=== PATIENT | male | born 1950 | race African-American/Black ===

== ENCOUNTER 2017-01-21 08:57 | Emergency (ER) | payer OTHER ==
[~2017-01-21] VITALS: Ht 188 cm; Wt 104.3 kg
--- NOTE | 2017-01-21 10:20 | Emergency Room Report ---
History of Present Illness General Chief Complaint: Back Pain-No Injury Source: Patient, EMS Present Illness HPI 66 yo M unknown pmhx brought by ems after being [place] wandering [place] patient states he fell onto his hand, noted to have slight abrasion, but denies any pain states he has chronic back pain states he lives at a facility and would like to go home denies any other complaints Allergies: Coded Allergies: No Known Allergies (Unverified , 01/21/17) Patient History Limited by: medical condition Past Medical History: unable to obtain Past Surgical History: unable to obtain Pertinent Family History: unable to obtain Nursing Documentation-[facility] Past Medical History: No History, Except For Hx Cardiac Problems: Yes Hx Hypertension: Yes Hx Diabetes: Yes History Of Psychiatric Problem: Yes Review of Systems All Other Systems: negative except mentioned in HPI Physical Exam Vital Signs Date Time Temp Pulse Resp B/P Pulse Ox O2 Delivery O2 Flow Rate FiO2 01/21/17 08:55 98.4 80 16 142/84 99 Room Air General Appearance: normal inspection, no apparent distress, alert, GCS 15, non -toxic, other - disheveled appearing male, ambulatory, not in pain Head: normocephalic, atraumatic Eyes: bilateral eye EOMI, bilateral eye PERRL, bilateral eye normal inspection ENT: normal ENT inspection, normal pharynx, normal voice, moist mucus membranes Neck: normal inspection, full range of motion, supple, no bony tend Respiratory: normal inspection, lungs clear, normal breath sounds, no respiratory distress, no retraction, no wheezing, speaking full sentences, chest symmetrical Cardiovascular #1: normal inspection, regular rate, rhythm, no edema, normal capillary refill Gastrointestinal: normal inspection, non tender, soft, non-distended, no guarding Genitourinary: no CVA tenderness Musculoskeletal: normal inspection, back normal, normal range of motion, non- tender, other - abrasion noted to R hand, not infected, no gross bony deformities Neurologic: normal inspection, alert, responsive, tool grinder III-XII nml as tested, motor strength/tone normal, sensory intact, normal gait, speech normal, other - aox1-2 Medical Decision Making Diagnostic Impression: Primary Impression: Chronic back pain Additional Impression: Homelessness ER Course 66 yo M with pmhx of back pain b/b ems, complaining of his normal chronic back pain, wants to go home. DDX: likely musculoskeletal back pain vs. muscular strain vs. sciatica at this time pt does not appear altered is carrying normal conversation, cannot state his exact address on where he lives but states he lives in a facility. denying any pain. Serious diagnoses such as cord compression, epidural abscess is unlikely in this patient given the clinical scenario and abscess of neurological symptoms or findings. Patient appears nontoxic. Plan: tylenol/pain control ER course: Patient has remained nontoxic appearing and ambulatory in the ED. pt saying he wants to go home social workers consulted - found where he lives, will be xferred to that facility labs drawn - unremarkable except mild elevation lfts. no abd pain abd nontender Disposition: Patient will be discharged to home EKG Diagnostic Results Rate: normal Rhythm: NSR ASA given to the pt in ED: No Last Vital Signs Date Time Temp Pulse Resp B/P Pulse Ox O2 Delivery O2 Flow Rate FiO2 01/21/17 08:55 98.4 80 16 142/84 99 Room Air Michael Hernandez M.D. Jan 21, 2017 10:20
[2017-01-21 13:26] VITALS: BP 146/93
[2017-01-21 14:15] LABS: BASOPHILS % (AUTO) 1.1 % (0.0-2.0); EOSINOPHILS % (AUTO) 0.1 % (0.0-3.0); LYMPHOCYTES % (AUTO) 39.5 % (20.0-45.0); MEAN CORPUSCULAR HEMOGLOBIN 32.3 PG (27.0-31.0); MEAN CORPUSCULAR HGB CONC 31.6 G/DL (32.0-36.0); MEAN CORPUSCULAR VOLUME 103 FL (80-99); MEAN PLATELET VOLUME 7.6 FL (6.5-10.1); MONOCYTES % (AUTO) 11.1 % (1.0-10.0); NEUTROPHILS % (AUTO) 48.3 % (45.0-75.0); PLATELET COUNT 180 K/UL (150-450); RED BLOOD COUNT 4.55 M/UL (4.70-6.10); RED CELL DISTRIBUTION WIDTH 12.5 % (11.6-14.8); WHITE BLOOD COUNT 9.9 K/UL (4.8-10.8)
[2017-01-21 14:16] LABS: ALANINE AMINOTRANSFERASE 143 U/L (3-41); ALBUMIN/GLOBULIN RATIO 1.1 (1.0-2.7); ANION GAP 16 (5-15); ASPARTATE AMINO TRANSFERASE 230 U/L (5-40); CALCIUM 11.6 mg/dL (8.6-10.2); CARBON DIOXIDE 23 mEQ/L (20-30); CHLORIDE 101 mEQ/L (98-107); GLOMERULAR FILTRATION RATE > 60 mL/min (>60); HEMOLYSIS 6; POTASSIUM 3.8 mEQ/L (3.4-4.9); SODIUM 140 mEQ/L (135-145); TOTAL PROTEIN 7.6 g/dL (6.6-8.7)
[2017-01-21 16:00] VITALS: BP 140/89
[2017-01-21 18:00] VITALS: BP 143/91
[2017-01-21 20:00] VITALS: BP_SYST 135; BP_SYST 146; BP_DIAS 85; BP_DIAS 91
[2017-01-21 22:45] VITALS: BP 138/89
[2017-01-21 23:04] VITALS: BP 135/85
--- NOTE | 2017-01-23 00:52 | Cardiology Report ---
APPROVED REPORT EKG Measurement Heart [id number] MD 200P39 [id number] Normal sinus rhythm Left axis deviation Voltage criteria for left ventricular hypertrophy Prolonged QT Abnormal ECG
== END 2017-01-21 23:07 | disposition home or self-care (01) ==
LOC: EDBD 08:57 → EMR 09:28
DX: M54.9 Dorsalgia, unspecified (principal); G89.29 Other chronic pain; Z59.0 Homelessness; I10 Essential (primary) hypertension; E11.9 Type 2 diabetes mellitus without complications; S60.519A Abrasion of unspecified hand, initial encounter; W19.XXXA Unspecified fall, initial encounter; Y93.9 Activity, unspecified; Y92.9 Unspecified place or not applicable
CPT/HCPCS: 36415; 80053; 85025; 93005; 99284

== ENCOUNTER 2017-04-24 10:09 | Emergency (ER) | payer MEDICARE, OTHER ==
[~2017-04-24] VITALS: Ht 188 cm; Wt 95.3 kg
[2017-04-24 10:48] VITALS: BP 122/81
[2017-04-24 12:20] LABS: ANION GAP 5 mmol/L (5-15); CALCIUM 9.9 MG/DL (8.5-10.1); CARBON DIOXIDE 31 MMOL/L (21-32); CHLORIDE 102 MMOL/L (98-107); GLOMERULAR FILTRATION RATE > 60 mL/min (>60); POTASSIUM 4.5 MMOL/L (3.5-5.1); SODIUM 138 MMOL/L (136-145)
[2017-04-24 12:24] LABS: ALANINE AMINOTRANSFERASE 171 U/L (12-78); ALBUMIN/GLOBULIN RATIO 0.7 (1.0-2.7); ASPARTATE AMINO TRANSFERASE 140 U/L (15-37); LIPASE 168 U/L (73-393); TOTAL PROTEIN 8.1 G/DL (6.4-8.2)
[2017-04-24 12:35] LABS: BASOPHILS % (AUTO) 1.4 % (0.0-2.0); EOSINOPHILS % (AUTO) 3.7 % (0.0-3.0); LYMPHOCYTES % (AUTO) 39.5 % (20.0-45.0); MEAN CORPUSCULAR HEMOGLOBIN 33.5 PG (27.0-31.0); MEAN CORPUSCULAR HGB CONC 32.1 G/DL (32.0-36.0); MEAN CORPUSCULAR VOLUME 104 FL (80-99); MEAN PLATELET VOLUME 8.6 FL (6.5-10.1); MONOCYTES % (AUTO) 12.8 % (1.0-10.0); NEUTROPHILS % (AUTO) 42.8 % (45.0-75.0); PLATELET COUNT 197 K/UL (150-450); RED BLOOD COUNT 4.35 M/UL (4.70-6.10); WHITE BLOOD COUNT 7.5 K/UL (4.8-10.8)
[2017-04-24 12:41] LABS: INR 1.1 (0.9-1.1); PROTHROMBIN TIME 11.1 SEC (9.30-11.50)
[2017-04-24] MEDS ORDERED: Mylanta II UD 30ml ORAL PRN (13:00)
[2017-04-24] MEDS ORDERED: Metoclopramide 10mg/2ml Inj IVP PRN (13:00)
[2017-04-24] MEDS ORDERED: Miralax 17gm pkt ORAL PRN (13:00)
[2017-04-24] MEDS ORDERED: Morphine Sulfate 2mg/ml Inj IVP PRN (13:00)
[2017-04-24] MEDS ORDERED: Nitroglycerin Subl 0.4mg tab SL PRN (13:00)
[2017-04-24] MEDS ORDERED: LORazepam Inj 2mg/ml 1ml IV PRN (13:00)
--- NOTE | 2017-04-24 13:32 | Emergency Room Report ---
History of Present Illness General Chief Complaint: Abdominal Pain Source: Patient Present Illness HPI 67-year-old male, unknown past medical history, presenting with abdominal pain. Patient is awake and oriented to person place, however not giving much history , patient states that he is in pain in the right abdomen, records obtained from [facility]. 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 Patient had been seen by interventional radiology who recommended embolization outpatient Patient not giving much history, unknown if he has nausea vomiting or fever Allergies: Coded Allergies: No Known Allergies (Unverified , 01/21/17) Patient History Past Medical History: see triage record Past Surgical History: none Pertinent Family History: none Reviewed Nursing Documentation: PMH: Agreed, PSxH: Agreed Nursing Documentation-PMH Past Medical History: No History, Except For Hx Cardiac Problems: Yes Hx Hypertension: Yes Hx Diabetes: Yes Hx Seizures: Yes Physical Exam Vital Signs Date Time Temp Pulse Resp B/P (MAP) Pulse Ox O2 Delivery O2 Flow Rate FiO2 04/24/17 10:16 98.1 67 16 122/81 98 Room Air Medical Decision Making Diagnostic Impression: Primary Impression: Abdominal pain Additional Impression: Liver mass ER Course 67-year-old male, history of likely hepatocellular carcinoma, presenting with abdominal pain Differential Diagnosis: Abdominal pain likely related to hepatocellular carcinoma Gastritis, gastroenteritis, cholecystitis, appendicitis, diverticulitis, SBO, mesenteric ischemia, cardiac, UTI/pyelo At this time abdomen is soft non-peritoneal, just had an MRI performed 4 days ago showing mass in liver Plan: Basic labs, ua, ekg Pain control ER course: Patient has been monitored during ED stay, HD stable Not complaining of pain, repeat abdominal exam continues to be soft Was never given pain medication and is nad Dr Bliss (pcp) came to see patient, pt with HCC as diagnosed on MRI. he is tolerating PO, abd exam nontneder, will DC back to board and care and have him fu outpatinet Disposition: Patient will be DC to board and care strict return prec given such as intractable abd pain, fever chills, nausea or vomiting Please note that this Emergency Department Report was dictated using [employer] installation technician technology software, occasionally this can lead to erroneous entry secondary to interpretation by the dictation equipment. EKG Diagnostic Results EP Interpretation: Yes Rate: normal Rhythm: NSR ST Segments: T wave inversion in aVL ASA given to patient: No Rhythm Strip EP Interpretation: Yes Rate: 55 Rhythm: NSR, no PVCs, no ectopy Laboratory Tests Last Vital Signs Date Time Temp Pulse Resp B/P (MAP) Pulse Ox O2 Delivery O2 Flow Rate FiO2 04/24/17 10:48 98.1 16 122/81 98 Room Air 04/24/17 10:16 67 Disposition: HOME, SELF-CARE Condition: Improved Referrals: RUDDY BLISS (PCP) Patient Instructions: Abdominal Pain, Adult Michael Hernandez M.D. Apr 24, 2017 13:32
[2017-04-24 13:42] VITALS: BP 132/78
[2017-04-24] MEDS ORDERED: D5 1/2NS 1,000 ML IV SCH (14:00)
--- NOTE | 2017-04-24 14:34 | Diagnostic Imaging Report ---
Indication: Abdominal pain, nausea, vomiting, diabetic, hypertension Technique: Machado-scale and duplex images of the upper abdomen were obtained Comparison: None Findings: Gallbladder is unremarkable, without stones, wall thickening, nor pericholecystic fluid. Sonographic Shah's sign is negative. Common bile duct measures 2 mm in diameter. No intrahepatic biliary ductal dilatation. Liver is enlarged. It demonstrates heterogeneous echogenicity. In the right hepatic lobe, anteriorly there is an ill-defined area of mixed mostly lower echogenicity which measures 7.4 x 5.8 x 6.4 cm. There is what appears to be tumor within the the main and/or right portal vein. There are surrounding collaterals. Or significant findings the hepatic veins are patent Pancreas is unremarkable. Spleen is unremarkable. Left kidney measures 12.3 cm in length. Right kidney measures 12.2 cm length. Both kidneys demonstrate normal echogenicity. There is no hydronephrosis. No focal abnormality . Non-aneurysmal abdominal aorta . Impression: Enlarged heterogeneous liver. Consistent with hepatocellular disease, nonspecific as regards etiology 7.4 x 5.8 x 6.4 cm ill-defined masslike lesion in the right hepatic lobe. 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 Per discussion with referring physician, these findings have been worked up previously on the outside. Correlation with outside imaging findings recommended, further workup as indicated Negative for gallstones or dilated ducts
[2017-04-24 15:50] VITALS: BP 128/75
[2017-04-24 16:24] VITALS: BP 128/75
[2017-04-24] MEDS ORDERED: Heparin 5000 units/ml inj SUBQ SCH (21:00)
[2017-04-25] MEDS ORDERED: Pantoprazole Inj IV SCH (09:00)
--- NOTE | 2017-04-27 08:16 | Consultation ---
DATE OF CONSULTATION: 04/24/2017 HEMATOLOGY/ONCOLOGY CONSULTATION History of present illness will be dictated later. ASSESSMENT AND RECOMMENDATIONS: 1. 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 We will obtain AFP, which has been ordered, it can also be obtained in a residential, potentially may benefit from Nexavar versus hospice given poor prognosis, likely the patient with tumor thrombus which is significant for very poor prognosis . 2. Portal vein thrombosis. Began the patient on Lovenox and Coumadin. INR goal between 2 and 3. 3. Anemia secondary to chronic disease, which is mild. 4. Hyperglycemia, elevated blood sugar likely secondary to reactive process. 5. Transaminitis likely related to the tumor thrombus. 6. . Consider the patient for hospice given poor prognosis, given the patient with tumor thrombus, generally not a very good candidate for these however it is difficult to monitor. 7. . Continue to also monitor. Obtain B12 and folate. The patient to be discharged. Chuckie Ashley M.D. DR: NANCY JOB#: [id number] CC:
--- NOTE | 2017-04-28 14:58 | Cardiology Report ---
APPROVED REPORT EKG Measurement Heart [id number] OK [id number] Sinus bradycardia Possible Left atrial enlargement Left ventricular hypertrophy Nonspecific ST and T wave abnormality Abnormal ECG
== END 2017-04-24 16:26 | disposition home or self-care (01) ==
LOC: EMR 11:15 → CANBEDREQ 14:12 → EMR 16:26
DX: R10.9 Unspecified abdominal pain (principal); I81 Portal vein thrombosis; R16.0 Hepatomegaly, not elsewhere classified; R74.0 Nonspecific elevation of levels of transaminase and lactic acid dehydrogenase [LDH]; E11.9 Type 2 diabetes mellitus without complications; I10 Essential (primary) hypertension
CPT/HCPCS: 36415; 76700; 80053; 83690; 84484; 85025; 85610; 85730; 93005; 99284

== ENCOUNTER 2017-06-12 10:51 | Inpatient (IN) | payer OTHER, MEDICARE ==
[~2017-06-12] VITALS: Ht 185.4 cm; Wt 99.8 kg
[2017-06-12] MEDS ORDERED: NORCO 10/3251 EA ORAL (11:36)
[2017-06-12] MEDS ORDERED: LISINOPRIL40 MG ORAL (11:36)
[2017-06-12] MEDS ORDERED: METFORMIN HCL1000 M1 ORAL (11:36)
[2017-06-12] MEDS ORDERED: PANTOPRAZOLE SO40 MG ORAL (11:36)
[2017-06-12] MEDS ORDERED: AMLODIPINE BESY10 MG ORAL (11:36)
[2017-06-12] MEDS ORDERED: FOLIC ACID1 MG ORAL (11:36)
[2017-06-12] MEDS ORDERED: METOPROLOL TART50 M1 ORAL (11:36)
[2017-06-12] MEDS ORDERED: ZOLOFT100 MG ORAL (11:36)
[2017-06-12] MEDS ORDERED: ASPIR 8181 MG ORAL (11:36)
[2017-06-12] MEDS ORDERED: LEVETIRACE100 MG/1 M GT (11:36)
[2017-06-12] MEDS ORDERED: MS CONTIN30 MG ORAL (11:36)
[2017-06-12] MEDS ORDERED: SENNA8.6 M2 PO (11:36)
[2017-06-12] MEDS ORDERED: QUETIAPINE FUM400 MG ORAL (11:36)
--- NOTE | 2017-06-12 11:41 | Emergency Room Report ---
History of Present Illness General Chief Complaint: Abdominal Pain Source: EMS Present Illness HPI 67-year-old male brought in by EMS with abdominal pain for 2-3 days. No associated nausea, vomiting, diarrhea. No fever or chills. Per Dr. Bliss, he has history of stomach cancer, has not been eating well/ drinking fluids. patient has history of hyperglycemia, and anemia of chronic disease Allergies: Coded Allergies: No Known Allergies (Unverified , 01/21/17) Patient History Past Medical History: other - See history of present illness Past Surgical History: none Pertinent Family History: none Social History: Denies: smoking, alcohol use, drug use Immunizations: UTD Reviewed Nursing Documentation: PMH: Agreed, PSxH: Agreed Nursing Documentation-PMH Hx Cardiac Problems: Yes Hx Hypertension: Yes - hyperlipidemia Hx Diabetes: Yes - DM type 2 History Of Psychiatric Problem: Yes - anxiety, depression Hx Seizures: Yes Review of Systems All Other Systems: negative except mentioned in HPI Physical Exam Vital Signs Date Time Temp Pulse Resp B/P (MAP) Pulse Ox O2 Delivery O2 Flow Rate FiO2 06/12/17 10:26 98.1 55 18 107/65 99 Room Air Sp02 EP Interpretation: reviewed, normal General Appearance: normal inspection, well appearing, no apparent distress, alert, GCS 15, non-toxic Head: normocephalic, atraumatic Eyes: bilateral eye PERRL, bilateral eye EOMI ENT: normal ENT inspection, hearing grossly normal, normal pharynx, no angioedema, normal voice, TMs + canals normal, uvula midline, moist mucus membranes Neck: normal inspection, full range of motion, supple, thyroid normal, no meningismus, no bony tend Respiratory: normal inspection, lungs clear, normal breath sounds, no rhonchi, no respiratory distress, no retraction, no accessory muscle use, no wheezing, speaking full sentences Cardiovascular #1: regular rate, rhythm, no edema, no JVD, normal capillary refill Gastrointestinal: normal inspection, normal bowel sounds, non tender, soft, no mass, no peritonitis, no guarding, no hernia, no pulsatile mass, distended, other - not peritoneal\ Genitourinary: no CVA tenderness Musculoskeletal: normal inspection, back normal, normal range of motion, no calf tenderness, pelvis stable, Lara's Sign negative Neurologic: normal inspection, alert, oriented x3, responsive, hand blocker III-XII nml as tested, motor strength/tone normal, cerebellar normal, normal gait, speech normal Psychiatric: normal inspection, judgement/insight normal, mood/affect normal, no suicidal/homicidal ideation, no delusions Skin: normal inspection, normal color, no rash Lymphatic: normal inspection, no adenopathy Medical Decision Making Diagnostic Impression: Primary Impression: Abdominal pain Qualified Codes: R10.9 - Unspecified abdominal pain ER Course 67-year-old male with abdominal pain Known gastric cancer Admitted to Dr. Bliss for failure to thrive [facility] bed 11:41 AM Patient started on IV fluid maintenance and given pain medication in ER Labs pending at time of endorsement Rhythm Strip Diag. Results EP Interpretation: yes Rate: 55 Rhythm: NSR, no PVC's, no ectopy Last Vital Signs Date Time Temp Pulse Resp B/P (MAP) Pulse Ox O2 Delivery O2 Flow Rate FiO2 06/12/17 10:26 98.1 55 18 107/65 99 Room Air Status: improved Disposition: ADMITTED INPATIENT Condition: Stable Referrals: RUDDY BLISS (PCP) HIEN COSTA M.D. Jun 12, 2017 11:41
[2017-06-12] MEDS ORDERED: LR 1000ml 1,000 ML IV SCH (11:45)
[2017-06-12] MEDS ORDERED: Morphine Sulfate 4mg/ml Inj IVP ONE (11:45)
[2017-06-12 11:47] LABS: BASOPHILS % (AUTO) 0.7 % (0.0-2.0); EOSINOPHILS % (AUTO) 1.1 % (0.0-3.0); HEMATOCRIT 36.5 % (42.0-52.0); LYMPHOCYTES % (AUTO) 22.9 % (20.0-45.0); MEAN CORPUSCULAR VOLUME 104 FL (80-99); MONOCYTES % (AUTO) 9.7 % (1.0-10.0); NEUTROPHILS % (AUTO) 65.5 % (45.0-75.0); PLATELET COUNT 232 K/UL (150-450); RED BLOOD COUNT 3.51 M/UL (4.70-6.10); RED CELL DISTRIBUTION WIDTH 19.3 % (11.6-14.8); WHITE BLOOD COUNT 6.5 K/UL (4.8-10.8)
[2017-06-12 12:17] LABS: ANION GAP 12 mmol/L (5-15); BLOOD UREA NITROGEN 35 mg/dL (7-18); CARBON DIOXIDE 23 MMOL/L (21-32); CHLORIDE 100 MMOL/L (98-107); CREATININE 1.3 MG/DL (0.55-1.30); POTASSIUM 4.9 MMOL/L (3.5-5.1); SODIUM 135 MMOL/L (136-145)
[2017-06-12 12:21] LABS: ALANINE AMINOTRANSFERASE 239 U/L (12-78); ALBUMIN 2.9 G/DL (3.4-5.0); ALBUMIN/GLOBULIN RATIO 0.5 (1.0-2.7); ALKALINE PHOSPHATASE 333 U/L (46-116); ASPARTATE AMINO TRANSFERASE 414 U/L (15-37); BILIRUBIN,TOTAL 7.1 MG/DL (0.2-1.0)
[2017-06-12 12:46] LABS: BILIRUBIN,DIRECT 6.4 MG/DL (0.0-0.3)
[2017-06-12 12:48] VITALS: BP 133/83
--- NOTE | 2017-06-12 13:38 | History and Physical ---
History of Present Illness General Date patient seen: Jun 12, 2017 Reason for Hospitalization: Abdominal Pain Present Illness HPI 67-year-old male with pmhx of liver Cancer, diabetes, brought in by EMS with abdominal pain for 2-3 days and failure to thrive. No associated nausea, vomiting, diarrhea. No fever or chills. Allergies: Coded Allergies: No Known Allergies (Unverified , 01/21/17) Medication History Scheduled Amlodipine Besylate* (Amlodipine Besylate*), 10 MG ORAL DAILY, (Reported) Aspirin* (Aspir 81*), 81 MG ORAL DAILY, (Reported) Folic Acid* (Folic Acid*), 1 MG ORAL DAILY, (Reported) Levetiracetam* (Levetiracetam*), 500 MG GT BID, (Reported) Lisinopril* (Lisinopril*), 40 MG ORAL DAILY, (Reported) Metformin Hcl* (Metformin Hcl*), 1,000 MG ORAL BID, (Reported) Metoprolol Tartrate* (Metoprolol Tartrate*), 50 MG ORAL EVERY 12 HOURS, ( Reported) Morphine Sulfate* (Ms Contin*), 30 MG ORAL EVERY 12 HOURS, (Reported) Pantoprazole* (Pantoprazole*), 40 MG ORAL DAILY, (Reported) Quetiapine Fumarate* (Quetiapine Fumarate*), 400 MG ORAL BID, (Reported) Sertraline Hcl* (Zoloft*), 100 MG ORAL DAILY, (Reported) Scheduled PRN Hydrocodone/Acetaminophen (Hydrocodon-Acetaminophn 10-325), 1 TAB ORAL Q6H PRN for For Pain, (Reported) Miscellaneous Medications Sennosides (Senna), 8.6 MG PO, (Reported) Patient History Healthcare decision maker Resuscitation status Advanced Directive on File Past Medical/Surgical History Past Medical/Surgical History: (1) Diabetes mellitus Review of Systems Constitutional: Reports: malaise, weakness Physical Exam General Appearance: WD/WN Lines, tubes and drains: peripheral HEENT: normocephalic, atraumatic Neck: non-tender, normal alignment Respiratory/Chest: chest wall non-tender, lungs clear Breasts: no masses Cardiovascular/Chest: normal rate Genitourinary/Rectal: normal genital exam Extremities: normal range of motion Last 24 Hour Vital Signs Date Time Temp Pulse Resp B/P (MAP) Pulse Ox O2 Delivery O2 Flow Rate FiO2 06/12/17 12:48 98.5 17 133/83 Room Air 06/12/17 10:26 98.1 55 18 107/65 99 Room Air Laboratory Tests Test 06/12/17 11:25 White Blood Count 6.5 K/UL (4.8-10.8) Red Blood Count 3.51 M/UL (4.70-6.10) L Hemoglobin 11.0 G/DL (14.2-18.0) L Hematocrit 36.5 % (42.0-52.0) L Mean Corpuscular Volume 104 FL (80-99) H Mean Corpuscular Hemoglobin 31.3 PG (27.0-31.0) H Mean Corpuscular Hemoglobin Concent 30.1 G/DL (32.0-36.0) L Red Cell Distribution Width 19.3 % (11.6-14.8) H Platelet Count 232 K/UL (150-450) Mean Platelet Volume 9.9 FL (6.5-10.1) Neutrophils (%) (Auto) 65.5 % (45.0-75.0) Lymphocytes (%) (Auto) 22.9 % (20.0-45.0) Monocytes (%) (Auto) 9.7 % (1.0-10.0) Eosinophils (%) (Auto) 1.1 % (0.0-3.0) Basophils (%) (Auto) 0.7 % (0.0-2.0) Sodium Level 135 MMOL/L (136-145) L Potassium Level 4.9 MMOL/L (3.5-5.1) Chloride Level 100 MMOL/L (98-107) Carbon Dioxide Level 23 MMOL/L (21-32) Anion Gap 12 mmol/L (5-15) Blood Urea Nitrogen 35 mg/dL (7-18) H Creatinine 1.3 MG/DL (0.55-1.30) Estimat Glomerular Filtration Rate > 60 mL/min (>60) Glucose Level 98 MG/DL (74-106) Calcium Level 9.0 MG/DL (8.5-10.1) Total Bilirubin 7.1 MG/DL (0.2-1.0) H Direct Bilirubin 6.4 MG/DL (0.0-0.3) H Aspartate Amino Transf (AST/SGOT) 414 U/L (15-37) H Alanine Aminotransferase (ALT/SGPT) 239 U/L (12-78) H Alkaline Phosphatase 333 U/L (46-116) H Total Protein 8.2 G/DL (6.4-8.2) Albumin 2.9 G/DL (3.4-5.0) L Globulin 5.3 g/dL Albumin/Globulin Ratio 0.5 (1.0-2.7) L Height (Feet): 6 Height (Inches): 1.00 Weight (Pounds): 220 Medications Current Medications Medications (Trade) Dose Ordered Sig/Angeles Route PRN Reason Start Time Stop Time Status Last Admin Dose Admin Dextrose (Dextrose 50%) STAT PRN IV Hypoglycemia 06/12/17 13:45 07/12/17 13:44 UNV Dextrose/Sodium Chloride 1,000 ml @ 50 mls/hr Q20H IV 06/12/17 13:32 07/12/17 13:31 UNV Heparin Sodium (Porcine) (Heparin 5000 units/ml) 5,000 units EVERY 12 HOURS SUBQ 06/12/17 21:00 07/12/17 20:59 UNV Lactated Ringer's 1,000 ml @ 100 mls/hr Q10H IV 06/12/17 11:45 07/12/17 11:44 06/12/17 12:08 Lorazepam (Ativan 2mg/ml 1ml) 0.5 mg Q4H PRN IV For Anxiety 06/12/17 13:45 06/19/17 13:44 UNV Morphine Sulfate (Morphine Sulfate) 1 mg EVERY 4 HOURS PRN IVP For Pain 06/12/17 13:45 06/19/17 13:44 UNV Ondansetron HCl (Zofran) 4 mg Q6H PRN IVP Nausea & Vomiting 06/12/17 13:45 07/12/17 13:44 UNV Assessment/Plan Problem List: (1) Intractable abdominal pain ICD Codes: R10.9 - Unspecified abdominal pain SNOMED: 09168571, 406666895 (2) Liver mass ICD Codes: R16.0 - Hepatomegaly, not elsewhere classified SNOMED: 851311418 Assessment/Plan npo IV fluids GI to see abd pain management RUDDY [place] Jun 12, 2017 13:38
[2017-06-12] MEDS ORDERED: Morphine Sulfate 2mg/ml Inj IVP PRN (13:45)
--- NOTE | 2017-06-12 16:11 | Consultation ---
History of Present Illness General Date patient seen: Jun 12, 2017 Chief Complaint: Abdominal Pain Reason for Consultation: abdominal pain x2-3 days Present Illness HPI 67M with extensive medical history currently in group home was noted to have left lower quadrant pain and difficulty with appetite and oral intake over past 2-3 days. was transferred [place] [facility] [place] given unable to tolerate diet and having persistent pain. patient states that he is okay but confirms pain as left lower quadrant for a "few days". pain described as cramping without radiation 4-/10. no nausea or emesis. no fever or chills. does have similar pains intermittently but none that have lasted this long. nml bm and flatus as per patient. patient seen, history reviewed, chart reviewed. known significant liver disease with possible primary or metastatic liver cancer, liver decompensation, transaminitis, ascites. surgery called to evaluate for abdominal pain. Allergies: Coded Allergies: No Known Allergies (Unverified , 01/21/17) Medication History Scheduled Amlodipine Besylate* (Amlodipine Besylate*), 10 MG ORAL DAILY, (Reported) Aspirin* (Aspir 81*), 81 MG ORAL DAILY, (Reported) Folic Acid* (Folic Acid*), 1 MG ORAL DAILY, (Reported) Levetiracetam* (Levetiracetam*), 500 MG GT BID, (Reported) Lisinopril* (Lisinopril*), 40 MG ORAL DAILY, (Reported) Metformin Hcl* (Metformin Hcl*), 1,000 MG ORAL BID, (Reported) Metoprolol Tartrate* (Metoprolol Tartrate*), 50 MG ORAL EVERY 12 HOURS, ( Reported) Morphine Sulfate* (Ms Contin*), 30 MG ORAL EVERY 12 HOURS, (Reported) Pantoprazole* (Pantoprazole*), 40 MG ORAL DAILY, (Reported) Quetiapine Fumarate* (Quetiapine Fumarate*), 400 MG ORAL BID, (Reported) Sertraline Hcl* (Zoloft*), 100 MG ORAL DAILY, (Reported) Scheduled PRN Hydrocodone/Acetaminophen (Hydrocodon-Acetaminophn 10-325), 1 TAB ORAL Q6H PRN for For Pain, (Reported) Miscellaneous Medications Sennosides (Senna), 8.6 MG PO, (Reported) Patient History Limited by: medical condition History Provided By: Patient, Medical Record Healthcare decision maker Resuscitation status Advanced Directive on File Past Medical/Surgical History Past Medical/Surgical History: (1) Enteritis (2) Abdominal pain (3) Liver mass (4) Intractable abdominal pain Review of Systems Constitutional: Denies: no symptoms, see HPI, chills, sweats, fever, malaise, weakness, other Eye: Denies: no symptoms, see HPI, eye pain, blurred vision, tearing, double vision, nose pain, nose congestion, acuity changes, discharge, other ENT: Denies: no symptoms, see HPI, ear pain, ear discharge, nose pain, nose congestion, throat pain, throat swelling, mouth pain, hearing loss, nasal discharge, other Respiratory: Denies: no symptoms, see HPI, cough, orthopnea, shortness of breath, stridor, wheezing, ULLOA, sputum, other Gastrointestinal: Reports: abdominal pain Genitourinary: Denies: no symptoms, see HPI, discharge, dysuria, frequency, hematuria, pain, retention, incontinence, urgency, vag bleed/dc, other Musculoskeletal: Denies: no symptoms, see HPI, back pain, gout, joint pain, joint swelling, muscle pain, muscle stiffness, other Skin: Denies: no symptoms, see HPI, rash, change in color, change in hair/nails , dryness, lesions, other Psychiatric: Denies: no symptoms, see HPI, prior hx, anxiety, depressed feelings, emotional problems, SI, HI, hallucinations, other Neurological: Denies: no symptoms, see HPI, headache, numbness, paresthesia, seizure, tingling, tremors, focal weakness, syncope, dizziness, other Endocrine: Denies: no symptoms, see HPI, excessive sweating, flushing, intolerance to temperature, increased thirst, increased urine, unexplained weight loss, other Hematologic/Lymphatic: Denies: no symptoms, see HPI, anemia, blood clots, easy bleeding, easy bruising, swollen glands, diathesis, other Physical Exam General Appearance: no apparent distress Lines, tubes and drains: peripheral HEENT: mucous membranes moist, other - icteric Neck: supple Respiratory/Chest: lungs clear, normal breath sounds, no respiratory distress, no accessory muscle use Cardiovascular/Chest: normal peripheral pulses Abdomen: normal bowel sounds, soft, tender, other - soft, mild tenderness in generalized but no peritonitis, no rebound, no guarding, fluid shift, ascites, distended, no organomegaly Skin Exam: normal pigmentation, jaundice Neurologic: alert, responsive Last 24 Hour Vital Signs Date Time Temp Pulse Resp B/P (MAP) Pulse Ox O2 Delivery O2 Flow Rate FiO2 06/12/17 12:48 98.5 17 133/83 Room Air 06/12/17 10:26 98.1 55 18 107/65 99 Room Air Laboratory Tests Test 06/12/17 11:25 White Blood Count 6.5 K/UL (4.8-10.8) Red Blood Count 3.51 M/UL (4.70-6.10) L Hemoglobin 11.0 G/DL (14.2-18.0) L Hematocrit 36.5 % (42.0-52.0) L Mean Corpuscular Volume 104 FL (80-99) H Mean Corpuscular Hemoglobin 31.3 PG (27.0-31.0) H Mean Corpuscular Hemoglobin Concent 30.1 G/DL (32.0-36.0) L Red Cell Distribution Width 19.3 % (11.6-14.8) H Platelet Count 232 K/UL (150-450) Mean Platelet Volume 9.9 FL (6.5-10.1) Neutrophils (%) (Auto) 65.5 % (45.0-75.0) Lymphocytes (%) (Auto) 22.9 % (20.0-45.0) Monocytes (%) (Auto) 9.7 % (1.0-10.0) Eosinophils (%) (Auto) 1.1 % (0.0-3.0) Basophils (%) (Auto) 0.7 % (0.0-2.0) Sodium Level 135 MMOL/L (136-145) L Potassium Level 4.9 MMOL/L (3.5-5.1) Chloride Level 100 MMOL/L (98-107) Carbon Dioxide Level 23 MMOL/L (21-32) Anion Gap 12 mmol/L (5-15) Blood Urea Nitrogen 35 mg/dL (7-18) H Creatinine 1.3 MG/DL (0.55-1.30) Estimat Glomerular Filtration Rate > 60 mL/min (>60) Glucose Level 98 MG/DL (74-106) Calcium Level 9.0 MG/DL (8.5-10.1) Total Bilirubin 7.1 MG/DL (0.2-1.0) H Direct Bilirubin 6.4 MG/DL (0.0-0.3) H Aspartate Amino Transf (AST/SGOT) 414 U/L (15-37) H Alanine Aminotransferase (ALT/SGPT) 239 U/L (12-78) H Alkaline Phosphatase 333 U/L (46-116) H Total Protein 8.2 G/DL (6.4-8.2) Albumin 2.9 G/DL (3.4-5.0) L Globulin 5.3 g/dL Albumin/Globulin Ratio 0.5 (1.0-2.7) L Height (Feet): 6 Height (Inches): 1.00 Weight (Pounds): 220 Medications Current Medications Medications (Trade) Dose Ordered Sig/Angeles Route PRN Reason Start Time Stop Time Status Last Admin Dose Admin Dextrose (Dextrose 50%) STAT PRN IV Hypoglycemia 06/12/17 13:45 07/12/17 13:44 UNV Dextrose/Sodium Chloride 1,000 ml @ 50 mls/hr Q20H IV 06/12/17 13:32 07/12/17 13:31 UNV Heparin Sodium (Porcine) (Heparin 5000 units/ml) 5,000 units EVERY 12 HOURS SUBQ 06/12/17 21:00 07/12/17 20:59 UNV Lactated Ringer's 1,000 ml @ 100 mls/hr Q10H IV 06/12/17 11:45 07/12/17 11:44 06/12/17 12:08 Lorazepam (Ativan 2mg/ml 1ml) 0.5 mg Q4H PRN IV For Anxiety 06/12/17 13:45 06/19/17 13:44 UNV Morphine Sulfate (Morphine Sulfate) 1 mg EVERY 4 HOURS PRN IVP For Pain 06/12/17 13:45 06/19/17 13:44 UNV Ondansetron HCl (Zofran) 4 mg Q6H PRN IVP Nausea & Vomiting 06/12/17 13:45 07/12/17 13:44 UNV Assessment/Plan Problem List: (1) Intractable abdominal pain Assessment & Plan: 67M with abdominal pain for 2-3 days. afebrile, HD stable, labs reviewed. extensive history with what seems to be liver malignancy. ultrasound completed and pending final read. on exam abdomen tender but no peritonitis or acute abdomen. will order CT A/P without contrast to evaluate for intraabdominal pathology and also to see extent/progress of liver tumor. will follow with serial abdominal exams trend labs no acute surgical intervention necessary. prognosis poor and guarded. thank you for this consultation. will follow with recs. ICD Codes: R10.9 - Unspecified abdominal pain SNOMED: 12760156, [id number] Status: other - prognosis guarded [place] Jun 12, 2017 16:11
--- NOTE | 2017-06-12 17:18 | GI Initial Consult Note ---
AprilShanta Carooi N.P. 06/12/17 1718: History of Present Illness General Date patient seen: Jun 12, 2017 Time patient seen: 16:00 Reason for Hospitalization: Abdominal Pain Referring physician: RUDDY CORREIA Reason for Consultation: abdominal pain x2-3 days Present Illness HPI 67-year-old male brought in by EMS with abdominal pain for 2-3 days. No associated nausea, vomiting, diarrhea. No fever or chills. Per Dr. Bliss, he has history of stomach cancer, has not been eating well/ drinking fluids. patient has history of hyperglycemia, and anemia of chronic disease. GI consulted for abdominal pain. HPI noted above. Patient seen in ED, awake A& OxNAD c/o of abdominal distended and tender to touch. Jaundice tinted sclera. Denies any use of ETOH, tobacco, or drugs. No know history of endoscopy / colonoscopies. Lab review shows anemia, transaminitis, elevated alk phosphatase with elevated t. bilirubin and hypoalbuminemia. Abdominal U/S performed last year, see full summary below. Service Date: 04/24/17 Procedure: US ABD Complete Indication: Abdominal pain, nausea, vomiting, diabetic, hypertension Impression: Enlarged heterogeneous liver. Consistent with hepatocellular disease, nonspecific as regards etiology 7.4 x 5.8 x 6.4 cm ill-defined masslike lesion in the right hepatic lobe. 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 Negative for gallstones or dilated ducts Home Meds Reported Medications Morphine Sulfate* (MS CONTIN*) 30 Mg Tablet.er, 30 MG ORAL EVERY 12 HOURS, #30 TAB 0 Refills 06/12/17 Sennosides (SENNA) 8.6 Mg Tablet, 8.6 MG PO, TAB 06/12/17 Metformin Hcl* (METFORMIN HCL*) 1,000 Mg Tablet, 1000 MG ORAL BID, TAB 06/12/17 Folic Acid* (FOLIC ACID*) 1 Mg Tablet, 1 MG ORAL DAILY, TAB 06/12/17 Quetiapine Fumarate* (QUETIAPINE FUMARATE*) 400 Mg Tablet, 400 MG ORAL BID, TAB 06/12/17 Hydrocodone/Acetaminophen (Hydrocodon-Acetaminophn 10-325) 1 Each Tablet, 1 TAB ORAL Q6H Y for For Pain, #30 TAB 0 Refills 06/12/17 Sertraline Hcl* (ZOLOFT*) 100 Mg Tablet, 100 MG ORAL DAILY, TAB 06/12/17 Pantoprazole* (PANTOPRAZOLE*) 40 Mg Tablet.dr, 40 MG ORAL DAILY, TAB 06/12/17 Lisinopril* (LISINOPRIL*) 40 Mg Tablet, 40 MG ORAL DAILY, TAB 06/12/17 Metoprolol Tartrate* (METOPROLOL TARTRATE*) 50 Mg Tablet, 50 MG ORAL EVERY 12 HOURS, TAB 06/12/17 Amlodipine Besylate* (AMLODIPINE BESYLATE*) 10 Mg Tablet, 10 MG ORAL DAILY, TAB 06/12/17 Levetiracetam* (LEVETIRACETAM*) 100 Mg/1 Ml Solution, 500 MG GT BID 06/12/17 Aspirin* (ASPIR 81*) 81 Mg Tablet.dr, 81 MG ORAL DAILY, TAB 06/12/17 Med list reviewed/reconciled: Yes Allergies: Coded Allergies: No Known Allergies (Unverified , 01/21/17) Patient History History Provided By: Patient, Medical Record PMH Narrative Past Medical History: other - See history of present illness Past Surgical History: none Pertinent Family History: none Social History: Denies: smoking, alcohol use, drug use Immunizations: UTD Reviewed Nursing Documentation: PMH: Agreed, PSxH: Agreed Nursing Documentation-PMH Hx Cardiac Problems: Yes Hx Hypertension: Yes - hyperlipidemia Hx Diabetes: Yes - DM type 2 History Of Psychiatric Problem: Yes - anxiety, depression Social History: Denies: smoking, alcohol use, drug use, other Review of Systems All Other Systems: negative except mentioned in HPI Physical Exam Vital Signs Date Time Temp Pulse Resp B/P (MAP) Pulse Ox O2 Delivery O2 Flow Rate FiO2 06/12/17 10:26 98.1 55 18 107/65 99 Room Air Sp02 EP Interpretation: reviewed, normal Labs Laboratory Tests Test 06/12/17 11:25 White Blood Count 6.5 K/UL (4.8-10.8) Red Blood Count 3.51 M/UL (4.70-6.10) L Hemoglobin 11.0 G/DL (14.2-18.0) L Hematocrit 36.5 % (42.0-52.0) L Mean Corpuscular Volume 104 FL (80-99) H Mean Corpuscular Hemoglobin 31.3 PG (27.0-31.0) H Mean Corpuscular Hemoglobin Concent 30.1 G/DL (32.0-36.0) L Red Cell Distribution Width 19.3 % (11.6-14.8) H Platelet Count 232 K/UL (150-450) Mean Platelet Volume 9.9 FL (6.5-10.1) Neutrophils (%) (Auto) 65.5 % (45.0-75.0) Lymphocytes (%) (Auto) 22.9 % (20.0-45.0) Monocytes (%) (Auto) 9.7 % (1.0-10.0) Eosinophils (%) (Auto) 1.1 % (0.0-3.0) Basophils (%) (Auto) 0.7 % (0.0-2.0) Sodium Level 135 MMOL/L (136-145) L Potassium Level 4.9 MMOL/L (3.5-5.1) Chloride Level 100 MMOL/L (98-107) Carbon Dioxide Level 23 MMOL/L (21-32) Anion Gap 12 mmol/L (5-15) Blood Urea Nitrogen 35 mg/dL (7-18) H Creatinine 1.3 MG/DL (0.55-1.30) Estimat Glomerular Filtration Rate > 60 mL/min (>60) Glucose Level 98 MG/DL (74-106) Calcium Level 9.0 MG/DL (8.5-10.1) Total Bilirubin 7.1 MG/DL (0.2-1.0) H Direct Bilirubin 6.4 MG/DL (0.0-0.3) H Aspartate Amino Transf (AST/SGOT) 414 U/L (15-37) H Alanine Aminotransferase (ALT/SGPT) 239 U/L (12-78) H Alkaline Phosphatase 333 U/L (46-116) H Total Protein 8.2 G/DL (6.4-8.2) Albumin 2.9 G/DL (3.4-5.0) L Globulin 5.3 g/dL Albumin/Globulin Ratio 0.5 (1.0-2.7) L General Appearance: well appearing, no apparent distress, alert Head: normocephalic EENT: PERRL/EOMI, normal ENT inspection Neck: supple Respiratory: normal breath sounds, no respiratory distress Cardiovascular: normal rate Gastrointestinal: non tender, soft, normal bowel sounds, non-distended, distended Rectal: deferred Genitourinary: deferred Musculoskeletal: normal inspection, back normal Neurologic: normal inspection, alert, oriented x3, responsive Psychiatric: normal inspection, judgement/insight normal, memory normal Skin: normal inspection, normal color, no rash, warm/dry, palpation normal, well hydrated, jaundice Lymphatic: normal inspection, no adenopathy Current Medications Current Medications Medications (Trade) Dose Ordered Sig/Angeles Route PRN Reason Start Time Stop Time Status Last Admin Dose Admin Dextrose (Dextrose 50%) STAT PRN IV Hypoglycemia 06/12/17 13:45 07/12/17 13:44 UNV Dextrose/Sodium Chloride 1,000 ml @ 50 mls/hr Q20H IV 06/12/17 13:32 07/12/17 13:31 UNV Heparin Sodium (Porcine) (Heparin 5000 units/ml) 5,000 units EVERY 12 HOURS SUBQ 06/12/17 21:00 07/12/17 20:59 UNV Lactated Ringer's 1,000 ml @ 100 mls/hr Q10H IV 06/12/17 11:45 07/12/17 11:44 06/12/17 12:08 Lorazepam (Ativan 2mg/ml 1ml) 0.5 mg Q4H PRN IV For Anxiety 06/12/17 13:45 06/19/17 13:44 UNV Morphine Sulfate (Morphine Sulfate) 1 mg EVERY 4 HOURS PRN IVP For Pain 06/12/17 13:45 06/19/17 13:44 UNV Ondansetron HCl (Zofran) 4 mg Q6H PRN IVP Nausea & Vomiting 06/12/17 13:45 07/12/17 13:44 UNV GI: Plan Problems: (1) Abdominal pain (2) Enteritis (3) Intractable abdominal pain (4) Liver mass Plan Abdominal U/S reviewed from 04/2017 >> 7.4 x 5.8 x 6.4 cm ill-defined masslike lesion in the right hepatic lobe. fu final read of current abdominal U/S and CT AP defer discriminant function at this time as it does not appear to be alcohol related anemia work up OB stool r/o GI bleed monitor H&H, prn transfusions bowel regime ppi imaging studies prn fu labs, LFTs Discussed with Dr. Linder. Thank you for this patient referral, we will follow. ABDIAZIZ LINDERD 06/16/17 1139: History of Present Illness General Reason for Hospitalization: Abdominal Pain Present Illness Home Meds Reported Medications Morphine Sulfate* (MS CONTIN*) 30 Mg Tablet.er, 30 MG ORAL EVERY 12 HOURS, #30 TAB 0 Refills 06/12/17 Sennosides (SENNA) 8.6 Mg Tablet, 8.6 MG PO, TAB 06/12/17 Metformin Hcl* (METFORMIN HCL*) 1,000 Mg Tablet, 1000 MG ORAL BID, TAB 06/12/17 Folic Acid* (FOLIC ACID*) 1 Mg Tablet, 1 MG ORAL DAILY, TAB 06/12/17 Quetiapine Fumarate* (QUETIAPINE FUMARATE*) 400 Mg Tablet, 400 MG ORAL BID, TAB 06/12/17 Hydrocodone/Acetaminophen (Hydrocodon-Acetaminophn 10-325) 1 Each Tablet, 1 TAB ORAL Q6H Y for For Pain, #30 TAB 0 Refills 06/12/17 Sertraline Hcl* (ZOLOFT*) 100 Mg Tablet, 100 MG ORAL DAILY, TAB 06/12/17 Pantoprazole* (PANTOPRAZOLE*) 40 Mg Tablet.dr, 40 MG ORAL DAILY, TAB 06/12/17 Lisinopril* (LISINOPRIL*) 40 Mg Tablet, 40 MG ORAL DAILY, TAB 06/12/17 Metoprolol Tartrate* (METOPROLOL TARTRATE*) 50 Mg Tablet, 50 MG ORAL EVERY 12 HOURS, TAB 06/12/17 Amlodipine Besylate* (AMLODIPINE BESYLATE*) 10 Mg Tablet, 10 MG ORAL DAILY, TAB 06/12/17 Levetiracetam* (LEVETIRACETAM*) 100 Mg/1 Ml Solution, 500 MG GT BID 06/12/17 Aspirin* (ASPIR 81*) 81 Mg Tablet., 81 MG ORAL DAILY, TAB 06/12/17 Allergies: Coded Allergies: No Known Allergies (Unverified , 01/21/17) GI: Plan Plan The patient was seen and examined at bedside and all new and available data was reviewed in the patients chart. I agree with the above findings, impression and plan. (Patient seen earlier today. Signature stamp does not reflect patient encounter time.). - MD April [facility] Jun 12, 2017 17:18 RASHAAD LINDER Jun 16, 2017 11:39
[2017-06-12 17:27] VITALS: BP 114/68
[2017-06-12] MEDS ORDERED: LORazepam Inj 2mg/ml 1ml IV PRN (18:00)
[2017-06-12 18:20] VITALS: BP 109/59
[2017-06-12] MEDS: Heparin 5000 units/ml inj SUBQ SCH (20:22)
[2017-06-12] MEDS: D5 1/2NS 1,000 ML IV SCH (20:37)
[2017-06-13] VITALS: BP 119/77
[2017-06-13 04:00] VITALS: BP 122/76
[2017-06-13 07:38] LABS: BASOPHILS % (AUTO) 0.9 % (0.0-2.0); EOSINOPHILS % (AUTO) 1.6 % (0.0-3.0); HEMATOCRIT 35.5 % (42.0-52.0); HEMOGLOBIN 11.1 G/DL (14.2-18.0); LYMPHOCYTES % (AUTO) 38.9 % (20.0-45.0); MEAN CORPUSCULAR VOLUME 105 FL (80-99); MONOCYTES % (AUTO) 7.3 % (1.0-10.0); NEUTROPHILS % (AUTO) 51.4 % (45.0-75.0); PLATELET COUNT 237 K/UL (150-450); RED BLOOD COUNT 3.38 M/UL (4.70-6.10); RED CELL DISTRIBUTION WIDTH 19.8 % (11.6-14.8); WHITE BLOOD COUNT 7.9 K/UL (4.8-10.8)
[2017-06-13 07:49] LABS: % IRON SATURATION 39 % (15-50); IRON 102 ug/dL (50-175); TOTAL IRON BINDING CAPACITY 261 ug/dL (250-450)
[2017-06-13 08:00] VITALS: BP 129/74
[2017-06-13 08:01] LABS: INR 1.7 (0.9-1.1)
[2017-06-13 08:35] LABS: ALANINE AMINOTRANSFERASE 231 U/L (12-78); ALBUMIN 2.8 G/DL (3.4-5.0); ALBUMIN/GLOBULIN RATIO 0.5 (1.0-2.7); ALKALINE PHOSPHATASE 305 U/L (46-116); ANION GAP 10 mmol/L (5-15); ASPARTATE AMINO TRANSFERASE 413 U/L (15-37); BILIRUBIN,TOTAL 7.2 MG/DL (0.2-1.0); BLOOD UREA NITROGEN 38 mg/dL (7-18); CALCIUM 9.1 MG/DL (8.5-10.1); CARBON DIOXIDE 24 MMOL/L (21-32); CHLORIDE 101 MMOL/L (98-107); CREATININE 1.3 MG/DL (0.55-1.30); FERRITIN 1662 NG/ML (8-388); POTASSIUM 4.8 MMOL/L (3.5-5.1); SODIUM 135 MMOL/L (136-145)
[2017-06-13 08:37] LABS: BILIRUBIN,DIRECT 6.3 MG/DL (0.0-0.3)
[2017-06-13] MEDS: D5 1/2NS 1,000 ML IV SCH (09:12)
[2017-06-13] MEDS: Heparin 5000 units/ml inj SUBQ SCH ×2 (10:12→20:20)
--- NOTE | 2017-06-13 11:30 | General Progress Note ---
Assessment/Plan Problem List: (1) Abdominal pain ICD Codes: R10.9 - Unspecified abdominal pain SNOMED: 76531170 Qualifiers: Qualified Codes: R10.9 - Unspecified abdominal pain (2) Liver mass ICD Codes: R16.0 - Hepatomegaly, not elsewhere classified SNOMED: 699717976 Assessment/Plan fu CT and us tumor markers fu labs Subjective ROS Limited/Unobtainable: Yes Allergies: Coded Allergies: No Known Allergies (Unverified , 01/21/17) Subjective no event Objective Last 24 Hour Vital Signs Date Time Temp Pulse Resp B/P (MAP) Pulse Ox O2 Delivery O2 Flow Rate FiO2 06/13/17 08:00 98.1 77 20 129/74 99 Room Air 06/13/17 04:00 97.3 71 18 122/76 98 Room Air 06/13/17 00:00 98.3 76 16 119/77 99 Room Air 06/12/17 18:20 98.7 16 109/59 98 Room Air 06/12/17 18:17 61 12 115/67 98 Room Air 06/12/17 17:27 98.7 14 114/68 97 Room Air 06/12/17 12:48 98.5 17 133/83 Room Air Intake and Output 06/12/17 06/13/17 19:00 07:00 Intake Total 0 ml 150 ml Output Total 200 ml Balance -200 ml 150 ml Intake Oral 0 ml Free Water 0 ml IV Total 150 ml Tube Feeding 0 ml Blood Product 0 ml Other 0 ml Output Urine Total 200 ml # Voids 1 Laboratory Tests 06/12/17 11:30: CA 125 Antigen [Pending], Prostate Specific Antigen 0.70 06/13/17 04:50: White Blood Count 7.9, Red Blood Count 3.38L, Hemoglobin 11.1L, Hematocrit 35.5L , Mean Corpuscular Volume 105H, Mean Corpuscular Hemoglobin 32.7H, Mean Corpuscular Hemoglobin Concent 31.2L, Red Cell Distribution Width 19.8H, Platelet Count 237, Mean Platelet Volume 8.8, Neutrophils (%) (Auto) 51.4, Lymphocytes (%) (Auto) 38.9, Monocytes (%) (Auto) 7.3, Eosinophils (%) (Auto) 1.6, Basophils (%) (Auto) 0.9, Reticulocyte Count [Pending], Prothrombin Time 17.7H, Prothromb Time International Ratio 1.7H, Activated Partial Thromboplast Time 33, Sodium Level 135L, Potassium Level 4.8, Chloride Level 101, Carbon Dioxide Level 24, Anion Gap 10, Blood Urea Nitrogen 38H, Creatinine 1.3, Estimat Glomerular Filtration Rate > 60, Glucose Level 68L, Calcium Level 9.1, Iron Level 102, Total Iron Binding Capacity 261, Percent Iron Saturation 39, Unsaturated Iron Binding 159, Ferritin 1662H, Total Bilirubin 7.2H, Direct Bilirubin 6.3H, Aspartate Amino Transf (AST/SGOT) 413H, Alanine Aminotransferase (ALT/SGPT) 231H, Alkaline Phosphatase 305H, Total Protein 7.9, Albumin 2.8L, Globulin 5.1, Albumin/Globulin Ratio 0.5L, Alpha Fetoprotein [ Pending], Vitamin B12 Level 571, Folate 14.6, Thyroid Stimulating Hormone (TSH) 2.045, Free Thyroxine 1.07 Height (Feet): 6 Height (Inches): 1.00 Weight (Pounds): 220 General Appearance: no apparent distress EENT: normal ENT inspection Neck: supple Cardiovascular: normal rate Respiratory/Chest: decreased breath sounds Abdomen: normal bowel sounds, non tender, soft Extremities: non-tender RASHAAD LINDER Jun 13, 2017 11:30
[2017-06-13 12:00] VITALS: BP 118/69
--- NOTE | 2017-06-13 12:16 | Pulmonology Progress Note ---
Assessment/Plan Assessment/Plan ASSESSMENT abdominal pain liver mass, likely malignancy transaminitis Anemia DM PLAN OF CARE MS floor IVF NPO GI eval appreciated CT A/P and abdominal US pending tumor markers pain management a/emetic prn surgery consult appreciated no acute surgical interventions check ammonia level trend LFT/bili anemia w/up noted, stable iron, high ferritin Venous Duplex BLE DVT prophylaxis prognosis poor and guarded case discussed and evaluated by supervising physician Subjective Allergies: Coded Allergies: No Known Allergies (Unverified , 01/21/17) Subjective intermittent abdominal pain no n/v/ denies CP SOB Objective Last 24 Hour Vital Signs Date Time Temp Pulse Resp B/P (MAP) Pulse Ox O2 Delivery O2 Flow Rate FiO2 06/13/17 08:00 98.1 77 20 129/74 99 Room Air 06/13/17 04:00 97.3 71 18 122/76 98 Room Air 06/13/17 00:00 98.3 76 16 119/77 99 Room Air 06/12/17 18:20 98.7 16 109/59 98 Room Air 06/12/17 18:17 61 12 115/67 98 Room Air 06/12/17 17:27 98.7 14 114/68 97 Room Air 06/12/17 12:48 98.5 17 133/83 Room Air Intake and Output 06/12/17 06/13/17 19:00 07:00 Intake Total 0 ml 150 ml Output Total 200 ml Balance -200 ml 150 ml Intake Oral 0 ml Free Water 0 ml IV Total 150 ml Tube Feeding 0 ml Blood Product 0 ml Other 0 ml Output Urine Total 200 ml # Voids 1 General Appearance: no acute distress HEENT: normocephalic, atraumatic, anicteric Respiratory/Chest: lungs clear, no respiratory distress, no accessory muscle use Cardiovascular: normal rate, no JVD Abdomen: normal bowel sounds - mild diffuse tenderness, no rebound, no guarding Neurologic/Psychiatric: alert, responsive Musculoskeletal: normal muscle bulk Laboratory Tests 06/13/17 04:50: White Blood Count 7.9, Red Blood Count 3.38L, Hemoglobin 11.1L, Hematocrit 35.5L , Mean Corpuscular Volume 105H, Mean Corpuscular Hemoglobin 32.7H, Mean Corpuscular Hemoglobin Concent 31.2L, Red Cell Distribution Width 19.8H, Platelet Count 237, Mean Platelet Volume 8.8, Neutrophils (%) (Auto) 51.4, Lymphocytes (%) (Auto) 38.9, Monocytes (%) (Auto) 7.3, Eosinophils (%) (Auto) 1.6, Basophils (%) (Auto) 0.9, Reticulocyte Count [Pending], Prothrombin Time 17.7H, Prothromb Time International Ratio 1.7H, Activated Partial Thromboplast Time 33, Sodium Level 135L, Potassium Level 4.8, Chloride Level 101, Carbon Dioxide Level 24, Anion Gap 10, Blood Urea Nitrogen 38H, Creatinine 1.3, Estimat Glomerular Filtration Rate > 60, Glucose Level 68L, Calcium Level 9.1, Iron Level 102, Total Iron Binding Capacity 261, Percent Iron Saturation 39, Unsaturated Iron Binding 159, Ferritin 1662H, Total Bilirubin 7.2H, Direct Bilirubin 6.3H, Aspartate Amino Transf (AST/SGOT) 413H, Alanine Aminotransferase (ALT/SGPT) 231H, Alkaline Phosphatase 305H, Total Protein 7.9, Albumin 2.8L, Globulin 5.1, Albumin/Globulin Ratio 0.5L, Alpha Fetoprotein [ Pending], Vitamin B12 Level 571, Folate 14.6, Thyroid Stimulating Hormone (TSH) 2.045, Free Thyroxine 1.07 Current Medications Medications (Trade) Dose Ordered Sig/Angeles Route PRN Reason Start Time Stop Time Status Last Admin Dose Admin Dextrose (Dextrose 50%) STAT PRN IV Hypoglycemia 06/12/17 18:00 07/12/17 17:59 Dextrose/Sodium Chloride 1,000 ml @ 50 mls/hr Q20H IV 06/12/17 13:32 07/12/17 13:31 06/12/17 20:37 Heparin Sodium (Porcine) (Heparin 5000 units/ml) 5,000 units EVERY 12 HOURS SUBQ 06/12/17 21:00 07/12/17 20:59 06/13/17 10:12 Lactated Ringer's 1,000 ml @ 100 mls/hr Q10H IV 06/12/17 11:45 07/12/17 11:44 06/12/17 12:08 Lorazepam (Ativan 2mg/ml 1ml) 0.5 mg Q4H PRN IV For Anxiety 06/12/17 18:00 06/19/17 17:59 06/12/17 20:20 Morphine Sulfate (Morphine Sulfate) 1 mg Q4H PRN IVP For Pain 06/12/17 13:45 06/19/17 13:44 Ondansetron HCl (Zofran) 4 mg Q6H PRN IVP Nausea & Vomiting 06/12/17 18:00 07/12/17 17:59 Avel Flanaganaleksandar)Ebony NP Jun 13, 2017 12:16
[2017-06-13 17:59] VITALS: BP 128/70
[2017-06-13 20:52] VITALS: BP 138/79
[2017-06-14] VITALS: BP 136/80
[2017-06-14 04:00] VITALS: BP 138/79
[2017-06-14] MEDS: D5 1/2NS 1,000 ML IV SCH (05:43)
[2017-06-14 07:35] LABS: BASOPHILS % (AUTO) 0.4 % (0.0-2.0); EOSINOPHILS % (AUTO) 0.3 % (0.0-3.0); HEMATOCRIT 36.9 % (42.0-52.0); HEMOGLOBIN 11.1 G/DL (14.2-18.0); LYMPHOCYTES % (AUTO) 26.5 % (20.0-45.0); MEAN CORPUSCULAR VOLUME 104 FL (80-99); MONOCYTES % (AUTO) 8.9 % (1.0-10.0); NEUTROPHILS % (AUTO) 63.9 % (45.0-75.0); PLATELET COUNT 278 K/UL (150-450); RED BLOOD COUNT 3.56 M/UL (4.70-6.10); RED CELL DISTRIBUTION WIDTH 19.6 % (11.6-14.8); WHITE BLOOD COUNT 8.8 K/UL (4.8-10.8)
[2017-06-14 07:38] LABS: AMMONIA 35 umol/L (11-32)
[2017-06-14 07:48] LABS: ALANINE AMINOTRANSFERASE 230 U/L (12-78); ALBUMIN/GLOBULIN RATIO 0.6 (1.0-2.7); ALKALINE PHOSPHATASE 309 U/L (46-116); ANION GAP 14 mmol/L (5-15); ASPARTATE AMINO TRANSFERASE 419 U/L (15-37); BILIRUBIN,TOTAL 7.7 MG/DL (0.2-1.0); BLOOD UREA NITROGEN 40 mg/dL (7-18); CALCIUM 9.4 MG/DL (8.5-10.1); CARBON DIOXIDE 21 MMOL/L (21-32); CHLORIDE 102 MMOL/L (98-107); CREATININE 1.4 MG/DL (0.55-1.30); POTASSIUM 4.7 MMOL/L (3.5-5.1); SODIUM 137 MMOL/L (136-145)
[2017-06-14 07:50] LABS: BILIRUBIN,DIRECT 6.6 MG/DL (0.0-0.3)
[2017-06-14 08:00] VITALS: BP 157/93
[2017-06-14] MEDS: Heparin 5000 units/ml inj SUBQ SCH ×2 (08:33→21:05)
[2017-06-14 12:00] VITALS: BP 138/79
--- NOTE | 2017-06-14 12:55 | General Progress Note ---
Assessment/Plan Problem List: (1) Abdominal pain ICD Codes: R10.9 - Unspecified abdominal pain SNOMED: 65096482 Qualifiers: Qualified Codes: R10.9 - Unspecified abdominal pain (2) Liver mass ICD Codes: R16.0 - Hepatomegaly, not elsewhere classified SNOMED: 235904123 Assessment/Plan fu CT and us tumor markers fu labs Subjective Allergies: Coded Allergies: No Known Allergies (Unverified , 01/21/17) Subjective no event Objective Last 24 Hour Vital Signs Date Time Temp Pulse Resp B/P (MAP) Pulse Ox O2 Delivery O2 Flow Rate FiO2 06/14/17 08:00 98.1 89 20 157/93 98 Room Air 06/14/17 04:00 98.8 86 18 138/79 96 Room Air 06/14/17 00:00 99.2 88 18 136/80 96 Room Air 06/13/17 20:52 100.9 90 17 138/79 96 06/13/17 17:59 98.8 86 20 128/70 94 Room Air Intake and Output 06/13/17 06/14/17 19:00 07:00 Intake Total 550 ml 50 ml Balance 550 ml 50 ml IV Total 550 ml 50 ml # Voids 3 # Bowel Movements 3 1 Laboratory Tests 06/14/17 05:00: White Blood Count 8.8, Red Blood Count 3.56L, Hemoglobin 11.1L, Hematocrit 36.9L , Mean Corpuscular Volume 104H, Mean Corpuscular Hemoglobin 31.3H, Mean Corpuscular Hemoglobin Concent 30.1L, Red Cell Distribution Width 19.6H, Platelet Count 278, Mean Platelet Volume 8.4, Neutrophils (%) (Auto) 63.9, Lymphocytes (%) (Auto) 26.5, Monocytes (%) (Auto) 8.9, Eosinophils (%) (Auto) 0.3, Basophils (%) (Auto) 0.4, Sodium Level 137, Potassium Level 4.7, Chloride Level 102, Carbon Dioxide Level 21, Anion Gap 14, Blood Urea Nitrogen 40H, Creatinine 1.4H, Estimat Glomerular Filtration Rate > 60, Glucose Level 93, Calcium Level 9.4, Total Bilirubin 7.7H, Direct Bilirubin 6.6H, Aspartate Amino Transf (AST/SGOT) 419H, Alanine Aminotransferase (ALT/SGPT) 230H, Alkaline Phosphatase 309H, Ammonia 35H, Total Protein 8.3H, Albumin 3.0L, Globulin 5.3, Albumin/Globulin Ratio 0.6L, Alpha Fetoprotein [Pending], Hepatitis A IgM Antibody [Pending], Hepatitis B Surface Antigen [Pending], Hepatitis B Core IgM Antibody [Pending], Hepatitis C Antibody [Pending] Height (Feet): 6 Height (Inches): 1.00 Weight (Pounds): 220 General Appearance: no apparent distress EENT: scleral icterus Neck: supple Cardiovascular: normal rate Respiratory/Chest: decreased breath sounds Abdomen: normal bowel sounds, non tender, soft Extremities: non-tender RASHAAD LINDER Jun 14, 2017 12:55
--- NOTE | 2017-06-14 12:58 | General Surgery Progress Note ---
General Surgery-Progress Note Subjective Additional Comments doing okay. no complaints. comfortable. Objective Last 24 Hour Vital Signs Date Time Temp Pulse Resp B/P (MAP) Pulse Ox O2 Delivery O2 Flow Rate FiO2 06/14/17 08:00 98.1 89 20 157/93 98 Room Air 06/14/17 04:00 98.8 86 18 138/79 96 Room Air 06/14/17 00:00 99.2 88 18 136/80 96 Room Air 06/13/17 20:52 100.9 90 17 138/79 96 06/13/17 17:59 98.8 86 20 128/70 94 Room Air I&O Intake and Output 06/13/17 06/14/17 19:00 07:00 Intake Total 550 ml 50 ml Balance 550 ml 50 ml IV Total 550 ml 50 ml # Voids 3 # Bowel Movements 3 1 Drains: none Cardiovascular: RSR Respiratory: clear Abdomen: soft, distended, non-tender, present bowel sounds Extremities: no tenderness Laboratory Tests Test 06/14/17 05:00 White Blood Count 8.8 K/UL (4.8-10.8) Red Blood Count 3.56 M/UL (4.70-6.10) L Hemoglobin 11.1 G/DL (14.2-18.0) L Hematocrit 36.9 % (42.0-52.0) L Mean Corpuscular Volume 104 FL (80-99) H Mean Corpuscular Hemoglobin 31.3 PG (27.0-31.0) H Mean Corpuscular Hemoglobin Concent 30.1 G/DL (32.0-36.0) L Red Cell Distribution Width 19.6 % (11.6-14.8) H Platelet Count 278 K/UL (150-450) Mean Platelet Volume 8.4 FL (6.5-10.1) Neutrophils (%) (Auto) 63.9 % (45.0-75.0) Lymphocytes (%) (Auto) 26.5 % (20.0-45.0) Monocytes (%) (Auto) 8.9 % (1.0-10.0) Eosinophils (%) (Auto) 0.3 % (0.0-3.0) Basophils (%) (Auto) 0.4 % (0.0-2.0) Sodium Level 137 MMOL/L (136-145) Potassium Level 4.7 MMOL/L (3.5-5.1) Chloride Level 102 MMOL/L (98-107) Carbon Dioxide Level 21 MMOL/L (21-32) Anion Gap 14 mmol/L (5-15) Blood Urea Nitrogen 40 mg/dL (7-18) H Creatinine 1.4 MG/DL (0.55-1.30) H Estimat Glomerular Filtration Rate > 60 mL/min (>60) Glucose Level 93 MG/DL (74-106) Calcium Level 9.4 MG/DL (8.5-10.1) Total Bilirubin 7.7 MG/DL (0.2-1.0) H Direct Bilirubin 6.6 MG/DL (0.0-0.3) H Aspartate Amino Transf (AST/SGOT) 419 U/L (15-37) H Alanine Aminotransferase (ALT/SGPT) 230 U/L (12-78) H Alkaline Phosphatase 309 U/L (46-116) H Ammonia 35 umol/L (11-32) H Total Protein 8.3 G/DL (6.4-8.2) H Albumin 3.0 G/DL (3.4-5.0) L Globulin 5.3 g/dL Albumin/Globulin Ratio 0.6 (1.0-2.7) L Alpha Fetoprotein Pending Hepatitis A IgM Antibody Pending Hepatitis B Surface Antigen Pending Hepatitis B Core IgM Antibody Pending Hepatitis C Antibody Pending Plan Problems: (1) Intractable abdominal pain Assessment & Plan: 67M with abdominal pain for 2-3 days. afebrile, HD stable, labs reviewed. extensive history with what seems to be liver malignancy. ultrasound completed and pending final read. on exam abdomen tender but no peritonitis or acute abdomen. Pending final CT read pending final tumor marker labs will follow with serial abdominal exams trend labs no acute surgical intervention necessary. prognosis poor and guarded. thank you for this consultation. will follow with recs. [place] Pace Jun 14, 2017 12:58
--- NOTE | 2017-06-14 15:03 | Pulmonology Progress Note ---
Assessment/Plan Assessment/Plan ASSESSMENT abdominal pain liver mass, likely malignancy transaminitis Anemia DM PLAN OF CARE MS floor IVF NPO GI eval appreciated CT A/P and abdominal US tumor markers: CA 125 and PSA WNL, AFP pending pain management a/emetic prn surgery consult appreciated no acute surgical interventions ammonia level -35 trend LFT/bili-high anemia w/up noted, stable iron, high ferritin Venous Duplex BLE DVT prophylaxis prognosis poor and guarded case discussed and evaluated by supervising physician Subjective Allergies: Coded Allergies: No Known Allergies (Unverified , 01/21/17) Subjective intermittent abdominal pain no n/v/ denies CP SOB Objective Last 24 Hour Vital Signs Date Time Temp Pulse Resp B/P (MAP) Pulse Ox O2 Delivery O2 Flow Rate FiO2 06/14/17 12:00 98.3 68 20 138/79 95 Room Air 06/14/17 08:00 98.1 89 20 157/93 98 Room Air 06/14/17 04:00 98.8 86 18 138/79 96 Room Air 06/14/17 00:00 99.2 88 18 136/80 96 Room Air 06/13/17 20:52 100.9 90 17 138/79 96 06/13/17 17:59 98.8 86 20 128/70 94 Room Air Intake and Output 06/13/17 06/14/17 19:00 07:00 Intake Total 550 ml 50 ml Balance 550 ml 50 ml IV Total 550 ml 50 ml # Voids 3 # Bowel Movements 3 1 Objective General Appearance: no acute distress HEENT: normocephalic, atraumatic, anicteric Respiratory/Chest: lungs clear, no respiratory distress, no accessory muscle use Cardiovascular: normal rate, no JVD Abdomen: normal bowel sounds - mild diffuse tenderness, no rebound, no guarding Neurologic/Psychiatric: alert, responsive Musculoskeletal: normal muscle bulk Microbiology Date/Time Source Procedure Growth Status 06/12/17 17:40 Nasal Nares MRSA Culture - Final NO METHICILLIN RESISTANT STAPH AUREUS... Complete 06/12/17 17:40 Rectum VRE Culture - Final NO VANCOMYCIN RESISTANT ENTEROCOCCUS ... Complete Laboratory Tests 06/14/17 05:00: White Blood Count 8.8, Red Blood Count 3.56L, Hemoglobin 11.1L, Hematocrit 36.9L , Mean Corpuscular Volume 104H, Mean Corpuscular Hemoglobin 31.3H, Mean Corpuscular Hemoglobin Concent 30.1L, Red Cell Distribution Width 19.6H, Platelet Count 278, Mean Platelet Volume 8.4, Neutrophils (%) (Auto) 63.9, Lymphocytes (%) (Auto) 26.5, Monocytes (%) (Auto) 8.9, Eosinophils (%) (Auto) 0.3, Basophils (%) (Auto) 0.4, Sodium Level 137, Potassium Level 4.7, Chloride Level 102, Carbon Dioxide Level 21, Anion Gap 14, Blood Urea Nitrogen 40H, Creatinine 1.4H, Estimat Glomerular Filtration Rate > 60, Glucose Level 93, Calcium Level 9.4, Total Bilirubin 7.7H, Direct Bilirubin 6.6H, Aspartate Amino Transf (AST/SGOT) 419H, Alanine Aminotransferase (ALT/SGPT) 230H, Alkaline Phosphatase 309H, Ammonia 35H, Total Protein 8.3H, Albumin 3.0L, Globulin 5.3, Albumin/Globulin Ratio 0.6L, Alpha Fetoprotein [Pending], Hepatitis A IgM Antibody [Pending], Hepatitis B Surface Antigen [Pending], Hepatitis B Core IgM Antibody [Pending], Hepatitis C Antibody [Pending] Current Medications Medications (Trade) Dose Ordered Sig/Angeles Route PRN Reason Start Time Stop Time Status Last Admin Dose Admin Dextrose (Dextrose 50%) STAT PRN IV Hypoglycemia 06/12/17 18:00 07/12/17 17:59 Dextrose/Sodium Chloride 1,000 ml @ 50 mls/hr Q20H IV 06/12/17 13:32 07/12/17 13:31 06/14/17 05:43 Heparin Sodium (Porcine) (Heparin 5000 units/ml) 5,000 units EVERY 12 HOURS SUBQ 06/12/17 21:00 07/12/17 20:59 06/14/17 08:33 Lorazepam (Ativan 2mg/ml 1ml) 0.5 mg Q4H PRN IV For Anxiety 06/12/17 18:00 06/19/17 17:59 06/12/17 20:20 Morphine Sulfate (Morphine Sulfate) 1 mg Q4H PRN IVP For Pain 06/12/17 13:45 06/19/17 13:44 06/13/17 18:28 Ondansetron HCl (Zofran) 4 mg Q6H PRN IVP Nausea & Vomiting 06/12/17 18:00 07/12/17 17:59 Avel ([facility])Ebony NP Jun 14, 2017 15:03
[2017-06-14 16:00] VITALS: BP 161/94
[2017-06-14] MEDS: Loperamide 2mg cap ORAL PRN ×2 (18:50→23:38)
[2017-06-14 20:00] VITALS: BP 160/94
[2017-06-14] MEDS: Metoprolol Tartrate 50mg tab ORAL SCH (21:04)
[2017-06-15] VITALS: BP 157/89
[2017-06-15] MEDS: D5 1/2NS 1,000 ML IV SCH ×2 (01:41→21:32)
[2017-06-15] MEDS: Loperamide 2mg cap ORAL PRN ×2 (05:34→17:34)
[2017-06-15 07:34] LABS: BASOPHILS % (AUTO) 1.1 % (0.0-2.0); HEMATOCRIT 34.6 % (42.0-52.0); HEMOGLOBIN 10.9 G/DL (14.2-18.0); LYMPHOCYTES % (AUTO) 32.7 % (20.0-45.0); MEAN CORPUSCULAR VOLUME 103 FL (80-99); MONOCYTES % (AUTO) 8.1 % (1.0-10.0); PLATELET COUNT 272 K/UL (150-450); RED BLOOD COUNT 3.35 M/UL (4.70-6.10); RED CELL DISTRIBUTION WIDTH 20.9 % (11.6-14.8); WHITE BLOOD COUNT 9.1 K/UL (4.8-10.8)
[2017-06-15 08:00] VITALS: BP 125/75
[2017-06-15 08:04] LABS: ALANINE AMINOTRANSFERASE 216 U/L (12-78); ALBUMIN/GLOBULIN RATIO 0.6 (1.0-2.7); ALKALINE PHOSPHATASE 281 U/L (46-116); ANION GAP 14 mmol/L (5-15); ASPARTATE AMINO TRANSFERASE 379 U/L (15-37); BLOOD UREA NITROGEN 38 mg/dL (7-18); CALCIUM 9.3 MG/DL (8.5-10.1); CARBON DIOXIDE 22 MMOL/L (21-32); CHLORIDE 102 MMOL/L (98-107); CREATININE 1.3 MG/DL (0.55-1.30); POTASSIUM 4.1 MMOL/L (3.5-5.1); SODIUM 137 MMOL/L (136-145)
[2017-06-15 08:11] LABS: BILIRUBIN,DIRECT 6.8 MG/DL (0.0-0.3)
[2017-06-15] MEDS: Metoprolol Tartrate 50mg tab ORAL SCH ×2 (08:48→20:58)
[2017-06-15] MEDS: Heparin 5000 units/ml inj SUBQ SCH ×2 (08:49→20:59)
[2017-06-15 12:00] VITALS: BP 131/73
--- NOTE | 2017-06-15 12:08 | GI Progress Note ---
Assessment/Plan Problems: (1) Liver mass ICD Codes: R16.0 - Hepatomegaly, not elsewhere classified SNOMED: 102395023 (2) Abdominal pain ICD Codes: R10.9 - Unspecified abdominal pain SNOMED: 90693329 Qualifiers: Qualified Codes: R10.9 - Unspecified abdominal pain (3) Enteritis ICD Codes: K52.9 - Noninfective gastroenteritis and colitis, unspecified SNOMED: 97917502 Status: unchanged Status Narrative Discussed with Dr. Mendez. Assessment/Plan fu CT and us tumor markers fu labs Subjective Subjective limited Objective Last 24 Hour Vital Signs Date Time Temp Pulse Resp B/P (MAP) Pulse Ox O2 Delivery O2 Flow Rate FiO2 06/15/17 08:48 74 125/76 06/15/17 08:48 74 125/76 06/15/17 08:00 98.0 73 18 125/75 95 06/15/17 00:00 98.0 67 19 157/89 98 Room Air 06/14/17 21:04 87 160/94 06/14/17 20:00 98.0 87 19 160/94 98 Room Air 06/14/17 16:00 98.0 89 18 161/94 96 Room Air Intake and Output 06/14/17 06/15/17 19:00 07:00 Intake Total 810 ml Balance 810 ml Intake Oral 360 ml IV Total 450 ml # Voids 7 # Bowel Movements 6 Laboratory Tests Test 06/15/17 05:15 White Blood Count 9.1 K/UL (4.8-10.8) Red Blood Count 3.35 M/UL (4.70-6.10) L Hemoglobin 10.9 G/DL (14.2-18.0) L Hematocrit 34.6 % (42.0-52.0) L Mean Corpuscular Volume 103 FL (80-99) H Mean Corpuscular Hemoglobin 32.6 PG (27.0-31.0) H Mean Corpuscular Hemoglobin Concent 31.6 G/DL (32.0-36.0) L Red Cell Distribution Width 20.9 % (11.6-14.8) H Platelet Count 272 K/UL (150-450) Mean Platelet Volume 8.5 FL (6.5-10.1) Neutrophils (%) (Auto) 57.0 % (45.0-75.0) Lymphocytes (%) (Auto) 32.7 % (20.0-45.0) Monocytes (%) (Auto) 8.1 % (1.0-10.0) Eosinophils (%) (Auto) 1.0 % (0.0-3.0) Basophils (%) (Auto) 1.1 % (0.0-2.0) Sodium Level 137 MMOL/L (136-145) Potassium Level 4.1 MMOL/L (3.5-5.1) Chloride Level 102 MMOL/L (98-107) Carbon Dioxide Level 22 MMOL/L (21-32) Anion Gap 14 mmol/L (5-15) Blood Urea Nitrogen 38 mg/dL (7-18) H Creatinine 1.3 MG/DL (0.55-1.30) Estimat Glomerular Filtration Rate > 60 mL/min (>60) Glucose Level 98 MG/DL (74-106) Calcium Level 9.3 MG/DL (8.5-10.1) Total Bilirubin 8.0 MG/DL (0.2-1.0) H Direct Bilirubin 6.8 MG/DL (0.0-0.3) H Aspartate Amino Transf (AST/SGOT) 379 U/L (15-37) H Alanine Aminotransferase (ALT/SGPT) 216 U/L (12-78) H Alkaline Phosphatase 281 U/L (46-116) H Total Protein 8.2 G/DL (6.4-8.2) Albumin 3.0 G/DL (3.4-5.0) L Globulin 5.2 g/dL Albumin/Globulin Ratio 0.6 (1.0-2.7) L Microbiology Date/Time Source Procedure Growth Status 06/14/17 17:50 Stool Clostridium difficile Toxin Assay - Final Complete Height (Feet): 6 Height (Inches): 1.00 Weight (Pounds): 220 General Appearance: alert Cardiovascular: normal rate Respiratory/Chest: normal breath sounds Abdominal Exam: soft Shanta Chen N.PEster Jun 15, 2017 12:07
--- NOTE | 2017-06-15 16:18 | General Surgery Progress Note ---
General Surgery-Progress Note Subjective Symptoms: improved Additional Comments comfortable. resting. no complaints. no bleeding Objective Last 24 Hour Vital Signs Date Time Temp Pulse Resp B/P (MAP) Pulse Ox O2 Delivery O2 Flow Rate FiO2 06/15/17 12:00 98.0 64 18 131/73 96 06/15/17 08:48 74 125/76 06/15/17 08:48 74 125/76 06/15/17 08:00 98.0 73 18 125/75 95 06/15/17 00:00 98.0 67 19 157/89 98 Room Air 06/14/17 21:04 87 160/94 06/14/17 20:00 98.0 87 19 160/94 98 Room Air I&O Intake and Output 06/14/17 06/15/17 19:00 07:00 Intake Total 810 ml Balance 810 ml Intake Oral 360 ml IV Total 450 ml # Voids 7 # Bowel Movements 6 Cardiovascular: RSR Respiratory: clear Abdomen: soft, distended, non-tender, present bowel sounds, other - fluid shift Extremities: no tenderness Laboratory Tests Test 06/15/17 05:15 White Blood Count 9.1 K/UL (4.8-10.8) Red Blood Count 3.35 M/UL (4.70-6.10) L Hemoglobin 10.9 G/DL (14.2-18.0) L Hematocrit 34.6 % (42.0-52.0) L Mean Corpuscular Volume 103 FL (80-99) H Mean Corpuscular Hemoglobin 32.6 PG (27.0-31.0) H Mean Corpuscular Hemoglobin Concent 31.6 G/DL (32.0-36.0) L Red Cell Distribution Width 20.9 % (11.6-14.8) H Platelet Count 272 K/UL (150-450) Mean Platelet Volume 8.5 FL (6.5-10.1) Neutrophils (%) (Auto) 57.0 % (45.0-75.0) Lymphocytes (%) (Auto) 32.7 % (20.0-45.0) Monocytes (%) (Auto) 8.1 % (1.0-10.0) Eosinophils (%) (Auto) 1.0 % (0.0-3.0) Basophils (%) (Auto) 1.1 % (0.0-2.0) Sodium Level 137 MMOL/L (136-145) Potassium Level 4.1 MMOL/L (3.5-5.1) Chloride Level 102 MMOL/L (98-107) Carbon Dioxide Level 22 MMOL/L (21-32) Anion Gap 14 mmol/L (5-15) Blood Urea Nitrogen 38 mg/dL (7-18) H Creatinine 1.3 MG/DL (0.55-1.30) Estimat Glomerular Filtration Rate > 60 mL/min (>60) Glucose Level 98 MG/DL (74-106) Calcium Level 9.3 MG/DL (8.5-10.1) Total Bilirubin 8.0 MG/DL (0.2-1.0) H Direct Bilirubin 6.8 MG/DL (0.0-0.3) H Aspartate Amino Transf (AST/SGOT) 379 U/L (15-37) H Alanine Aminotransferase (ALT/SGPT) 216 U/L (12-78) H Alkaline Phosphatase 281 U/L (46-116) H Total Protein 8.2 G/DL (6.4-8.2) Albumin 3.0 G/DL (3.4-5.0) L Globulin 5.2 g/dL Albumin/Globulin Ratio 0.6 (1.0-2.7) L Plan Problems: (1) Intractable abdominal pain Assessment & Plan: 67M with abdominal pain for 2-3 days prior to admission. afebrile, HD stable, labs reviewed. extensive history with what seems to be liver malignancy. uon exam abdomen tender but no peritonitis or acute abdomen. tenderness improved. CT reveiewed and large right liver mass with involvement of portal vein identified. has history of liver malignancy with metastasis which is unfortunately unresectable. prognosis poor. pending final tumor marker labs will follow with serial abdominal exams trend labs no acute surgical intervention necessary. prognosis poor and guarded. thank you for this consultation. will follow with recs. [place] Jun 15, 2017 16:18
--- NOTE | 2017-06-15 16:38 | Pulmonology Progress Note ---
Assessment/Plan Problems: (1) Intractable abdominal pain (2) Liver mass (3) Coagulopathy (4) ATN (acute tubular necrosis) (5) Abdominal pain Assessment/Plan vitamin K check renal parameters f/u GI recommendations symptomatic treatment. Subjective ROS Limited/Unobtainable: No Constitutional: Reports: no symptoms Respiratory: Reports: no symptoms Allergies: Coded Allergies: No Known Allergies (Unverified , 01/21/17) Objective Last 24 Hour Vital Signs Date Time Temp Pulse Resp B/P (MAP) Pulse Ox O2 Delivery O2 Flow Rate FiO2 06/15/17 12:00 98.0 64 18 131/73 96 06/15/17 08:48 74 125/76 06/15/17 08:48 74 125/76 06/15/17 08:00 98.0 73 18 125/75 95 06/15/17 00:00 98.0 67 19 157/89 98 Room Air 06/14/17 21:04 87 160/94 06/14/17 20:00 98.0 87 19 160/94 98 Room Air Intake and Output 06/14/17 06/15/17 19:00 07:00 Intake Total 810 ml Balance 810 ml Intake Oral 360 ml IV Total 450 ml # Voids 7 # Bowel Movements 6 General Appearance: WD/WN HEENT: normocephalic, atraumatic Respiratory/Chest: chest wall non-tender, lungs clear Cardiovascular: normal peripheral pulses, normal rate Abdomen: normal bowel sounds, soft, non tender Genitourinary: normal external genitalia Skin: no rash Neurologic/Psychiatric: electric container tester II-XII grossly normal Lymphatic: no neck adenopathy Musculoskeletal: normal muscle bulk Microbiology Date/Time Source Procedure Growth Status 06/12/17 17:40 Nasal Nares MRSA Culture - Final NO METHICILLIN RESISTANT STAPH AUREUS... Complete 06/14/17 17:50 Stool Clostridium difficile Toxin Assay - Final Complete 06/12/17 17:40 Rectum VRE Culture - Final NO VANCOMYCIN RESISTANT ENTEROCOCCUS ... Complete Laboratory Tests 06/15/17 05:15: White Blood Count 9.1, Red Blood Count 3.35L, Hemoglobin 10.9L, Hematocrit 34.6L , Mean Corpuscular Volume 103H, Mean Corpuscular Hemoglobin 32.6H, Mean Corpuscular Hemoglobin Concent 31.6L, Red Cell Distribution Width 20.9H, Platelet Count 272, Mean Platelet Volume 8.5, Neutrophils (%) (Auto) 57.0, Lymphocytes (%) (Auto) 32.7, Monocytes (%) (Auto) 8.1, Eosinophils (%) (Auto) 1.0, Basophils (%) (Auto) 1.1, Sodium Level 137, Potassium Level 4.1, Chloride Level 102, Carbon Dioxide Level 22, Anion Gap 14, Blood Urea Nitrogen 38H, Creatinine 1.3, Estimat Glomerular Filtration Rate > 60, Glucose Level 98, Calcium Level 9.3, Total Bilirubin 8.0H, Direct Bilirubin 6.8H, Aspartate Amino Transf (AST/SGOT) 379H, Alanine Aminotransferase (ALT/SGPT) 216H, Alkaline Phosphatase 281H, Total Protein 8.2, Albumin 3.0L, Globulin 5.2, Albumin/ Globulin Ratio 0.6L Current Medications Medications (Trade) Dose Ordered Sig/Angeles Route PRN Reason Start Time Stop Time Status Last Admin Dose Admin Amlodipine Besylate (Norvasc) 10 mg DAILY ORAL 06/15/17 09:00 07/15/17 08:59 06/15/17 08:48 Dextrose (Dextrose 50%) STAT PRN IV Hypoglycemia 06/12/17 18:00 07/12/17 17:59 Dextrose/Sodium Chloride 1,000 ml @ 50 mls/hr Q20H IV 06/12/17 13:32 07/12/17 13:31 06/15/17 01:41 Heparin Sodium (Porcine) (Heparin 5000 units/ml) 5,000 units EVERY 12 HOURS SUBQ 06/12/17 21:00 07/12/17 20:59 06/15/17 08:49 Levetiracetam (Keppra) 500 mg BID GT 06/15/17 18:00 07/15/17 17:59 Loperamide HCl (Imodium) 2 mg Q4H PRN ORAL Diarrhea 06/14/17 18:45 07/14/17 18:44 06/15/17 05:34 Lorazepam (Ativan 2mg/ml 1ml) 0.5 mg Q4H PRN IV For Anxiety 06/12/17 18:00 06/19/17 17:59 06/12/17 20:20 Metoprolol Tartrate (Lopressor) 50 mg EVERY 12 HOURS ORAL 06/14/17 21:00 07/14/17 20:59 06/15/17 08:48 Morphine Sulfate (MS Contin) 30 mg EVERY 12 HOURS ORAL 06/15/17 21:00 06/22/17 20:59 Morphine Sulfate (Morphine Sulfate) 1 mg Q4H PRN IVP For Pain 06/12/17 13:45 06/19/17 13:44 06/13/17 18:28 Ondansetron HCl (Zofran) 4 mg Q6H PRN IVP Nausea & Vomiting 06/12/17 18:00 07/12/17 17:59 Quetiapine Fumarate (SEROquel) 400 mg BID ORAL 06/15/17 18:00 07/15/17 17:59 Sertraline HCl (Zoloft) 100 mg DAILY ORAL 06/16/17 09:00 07/16/17 08:59 RUDDY [place] Jun 15, 2017 16:38
[2017-06-15] MEDS ORDERED: Phytonadione 10 mg/mL 1ml amp ONE (17:21)
[2017-06-15] MEDS: levETIRAcetam 500mg/5ml Liquid GT SCH (17:34)
[2017-06-15] MEDS: QUEtiapine 200mg tab ORAL SCH (17:34)
[2017-06-15] MEDS ORDERED: Phytonadione 10 MG in D5W 55 ML IVPB ONE (18:00)
[2017-06-15] MEDS ORDERED: MS Contin 30mg tab ORAL SCH (21:00)
[2017-06-15] MEDS: MS Contin 15mg tab ORAL SCH (21:40)
[2017-06-16 00:01] VITALS: BP 123/79
[2017-06-16 04:00] VITALS: BP 115/75
[2017-06-16 07:03] LABS: HEMATOCRIT 31.6 % (42.0-52.0); HEMOGLOBIN 9.8 G/DL (14.2-18.0); LYMPHOCYTES % (AUTO) 36.9 % (20.0-45.0); MEAN CORPUSCULAR VOLUME 104 FL (80-99); MONOCYTES % (AUTO) 9.7 % (1.0-10.0); NEUTROPHILS % (AUTO) 48.4 % (45.0-75.0); PLATELET COUNT 228 K/UL (150-450); RED BLOOD COUNT 3.05 M/UL (4.70-6.10); RED CELL DISTRIBUTION WIDTH 20.6 % (11.6-14.8); WHITE BLOOD COUNT 8.2 K/UL (4.8-10.8)
[2017-06-16 07:08] LABS: INR 1.2 (0.9-1.1)
[2017-06-16 07:25] LABS: PHOSPHORUS 3.1 MG/DL (2.5-4.9)
[2017-06-16 07:41] LABS: ALANINE AMINOTRANSFERASE 181 U/L (12-78); ALBUMIN 2.6 G/DL (3.4-5.0); ALBUMIN/GLOBULIN RATIO 0.6 (1.0-2.7); ALKALINE PHOSPHATASE 231 U/L (46-116); ANION GAP 12 mmol/L (5-15); ASPARTATE AMINO TRANSFERASE 320 U/L (15-37); BILIRUBIN,TOTAL 7.2 MG/DL (0.2-1.0); BLOOD UREA NITROGEN 35 mg/dL (7-18); CALCIUM 8.2 MG/DL (8.5-10.1); CARBON DIOXIDE 20 MMOL/L (21-32); CHLORIDE 100 MMOL/L (98-107); CREATININE 1.4 MG/DL (0.55-1.30); POTASSIUM 3.4 MMOL/L (3.5-5.1); SODIUM 132 MMOL/L (136-145)
[2017-06-16 07:43] LABS: BILIRUBIN,DIRECT 6.2 MG/DL (0.0-0.3)
[2017-06-16 08:00] VITALS: BP 121/76
[2017-06-16] MEDS: levETIRAcetam 500mg/5ml Liquid GT SCH ×2 (09:14→18:50)
[2017-06-16] MEDS: Metoprolol Tartrate 50mg tab ORAL SCH ×2 (09:14→20:32)
[2017-06-16] MEDS: QUEtiapine 200mg tab ORAL SCH ×2 (09:14→18:50)
[2017-06-16] MEDS: MS Contin 15mg tab ORAL SCH ×2 (09:15→20:33)
[2017-06-16] MEDS: Heparin 5000 units/ml inj SUBQ SCH ×2 (09:25→20:35)
[2017-06-16] MEDS: Sertraline 100mg tab ORAL SCH (09:26)
[2017-06-16] MEDS: D5 1/2NS 1,000 ML IV SCH (09:26)
--- NOTE | 2017-06-16 10:49 | General Surgery Progress Note ---
General Surgery-Progress Note Subjective Additional Comments doing okay. abdominal discomfort. no n/v/f/c. had BM. Objective Last 24 Hour Vital Signs Date Time Temp Pulse Resp B/P (MAP) Pulse Ox O2 Delivery O2 Flow Rate FiO2 06/16/17 09:14 63 121/76 06/16/17 09:14 63 121/76 06/16/17 08:00 96.6 63 18 121/76 96 06/16/17 04:00 98.0 63 18 115/75 96 06/16/17 04:00 96 Room Air 06/16/17 00:01 97.2 60 20 123/79 97 06/16/17 00:01 97 Room Air 06/15/17 22:39 98.0 06/15/17 20:58 64 131/73 06/15/17 12:00 98.0 64 18 131/73 96 I&O Intake and Output 06/15/17 06/16/17 19:00 07:00 Intake Total 106 ml 840 ml Balance 106 ml 840 ml Intake Oral 240 ml IV Total 106 ml 600 ml # Voids 2 # Bowel Movements 1 Cardiovascular: RSR Respiratory: clear Abdomen: soft, distended, non-tender, present bowel sounds, other - fluid shift Extremities: no tenderness Laboratory Tests Test 06/16/17 06:15 White Blood Count 8.2 K/UL (4.8-10.8) Red Blood Count 3.05 M/UL (4.70-6.10) L Hemoglobin 9.8 G/DL (14.2-18.0) L Hematocrit 31.6 % (42.0-52.0) L Mean Corpuscular Volume 104 FL (80-99) H Mean Corpuscular Hemoglobin 32.1 PG (27.0-31.0) H Mean Corpuscular Hemoglobin Concent 31.1 G/DL (32.0-36.0) L Red Cell Distribution Width 20.6 % (11.6-14.8) H Platelet Count 228 K/UL (150-450) Mean Platelet Volume 10.7 FL (6.5-10.1) H Neutrophils (%) (Auto) 48.4 % (45.0-75.0) Lymphocytes (%) (Auto) 36.9 % (20.0-45.0) Monocytes (%) (Auto) 9.7 % (1.0-10.0) Eosinophils (%) (Auto) 4.0 % (0.0-3.0) H Basophils (%) (Auto) 1.0 % (0.0-2.0) Prothrombin Time 12.4 SEC (9.30-11.50) H Prothromb Time International Ratio 1.2 (0.9-1.1) H Activated Partial Thromboplast Time 33 SEC (23-33) Sodium Level 132 MMOL/L (136-145) L Potassium Level 3.4 MMOL/L (3.5-5.1) L Chloride Level 100 MMOL/L (98-107) Carbon Dioxide Level 20 MMOL/L (21-32) L Anion Gap 12 mmol/L (5-15) Blood Urea Nitrogen 35 mg/dL (7-18) H Creatinine 1.4 MG/DL (0.55-1.30) H Estimat Glomerular Filtration Rate > 60 mL/min (>60) Glucose Level 395 MG/DL (74-106) #H Calcium Level 8.2 MG/DL (8.5-10.1) L Phosphorus Level 3.1 MG/DL (2.5-4.9) Magnesium Level 1.7 MG/DL (1.8-2.4) L Total Bilirubin 7.2 MG/DL (0.2-1.0) H Direct Bilirubin 6.2 MG/DL (0.0-0.3) H Aspartate Amino Transf (AST/SGOT) 320 U/L (15-37) H Alanine Aminotransferase (ALT/SGPT) 181 U/L (12-78) H Alkaline Phosphatase 231 U/L (46-116) H Total Protein 7.0 G/DL (6.4-8.2) Albumin 2.6 G/DL (3.4-5.0) L Globulin 4.4 g/dL Albumin/Globulin Ratio 0.6 (1.0-2.7) L Plan Problems: (1) Intractable abdominal pain Assessment & Plan: 67M with abdominal pain for 2-3 days prior to admission. afebrile, HD stable, labs reviewed. extensive history with what seems to be liver malignancy. on exam abdomen tender but no peritonitis or acute abdomen. tenderness improved. CT reveiewed and large right liver mass with involvement of portal vein identified. has history of liver malignancy with metastasis which is unfortunately unresectable. prognosis poor. pending final tumor marker labs will follow with serial abdominal exams trend labs no acute surgical intervention necessary. prognosis poor and guarded. thank you for this consultation. will follow with recs. [place] Jun 16, 2017 10:48
[2017-06-16 12:00] VITALS: BP 102/62
--- NOTE | 2017-06-16 14:25 | GI Progress Note ---
Assessment/Plan Problems: (1) Liver mass ICD Codes: R16.0 - Hepatomegaly, not elsewhere classified SNOMED: 629772705 (2) Abdominal pain ICD Codes: R10.9 - Unspecified abdominal pain SNOMED: 28036890 Qualifiers: Qualified Codes: R10.9 - Unspecified abdominal pain (3) Enteritis ICD Codes: K52.9 - Noninfective gastroenteritis and colitis, unspecified SNOMED: 35425319 Status: unchanged Status Narrative Discussed with Dr. Mendez. 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 symptomatic treatment titrate bowel regime fu tumor markers imaging studies prn fu labs Subjective Subjective limited diarrhea vs constipation Objective Last 24 Hour Vital Signs Date Time Temp Pulse Resp B/P (MAP) Pulse Ox O2 Delivery O2 Flow Rate FiO2 06/16/17 12:00 97.0 58 18 102/62 97 06/16/17 09:14 63 121/76 06/16/17 09:14 63 121/76 06/16/17 08:00 96.6 63 18 121/76 96 06/16/17 04:00 98.0 63 18 115/75 96 06/16/17 04:00 96 Room Air 06/16/17 00:01 97.2 60 20 123/79 97 06/16/17 00:01 97 Room Air 06/15/17 22:39 98.0 06/15/17 20:58 64 131/73 Intake and Output 06/15/17 06/16/17 19:00 07:00 Intake Total 106 ml 840 ml Balance 106 ml 840 ml Intake Oral 240 ml IV Total 106 ml 600 ml # Voids 2 # Bowel Movements 1 Laboratory Tests Test 06/16/17 06:15 White Blood Count 8.2 K/UL (4.8-10.8) Red Blood Count 3.05 M/UL (4.70-6.10) L Hemoglobin 9.8 G/DL (14.2-18.0) L Hematocrit 31.6 % (42.0-52.0) L Mean Corpuscular Volume 104 FL (80-99) H Mean Corpuscular Hemoglobin 32.1 PG (27.0-31.0) H Mean Corpuscular Hemoglobin Concent 31.1 G/DL (32.0-36.0) L Red Cell Distribution Width 20.6 % (11.6-14.8) H Platelet Count 228 K/UL (150-450) Mean Platelet Volume 10.7 FL (6.5-10.1) H Neutrophils (%) (Auto) 48.4 % (45.0-75.0) Lymphocytes (%) (Auto) 36.9 % (20.0-45.0) Monocytes (%) (Auto) 9.7 % (1.0-10.0) Eosinophils (%) (Auto) 4.0 % (0.0-3.0) H Basophils (%) (Auto) 1.0 % (0.0-2.0) Prothrombin Time 12.4 SEC (9.30-11.50) H Prothromb Time International Ratio 1.2 (0.9-1.1) H Activated Partial Thromboplast Time 33 SEC (23-33) Sodium Level 132 MMOL/L (136-145) L Potassium Level 3.4 MMOL/L (3.5-5.1) L Chloride Level 100 MMOL/L (98-107) Carbon Dioxide Level 20 MMOL/L (21-32) L Anion Gap 12 mmol/L (5-15) Blood Urea Nitrogen 35 mg/dL (7-18) H Creatinine 1.4 MG/DL (0.55-1.30) H Estimat Glomerular Filtration Rate > 60 mL/min (>60) Glucose Level 395 MG/DL (74-106) #H Calcium Level 8.2 MG/DL (8.5-10.1) L Phosphorus Level 3.1 MG/DL (2.5-4.9) Magnesium Level 1.7 MG/DL (1.8-2.4) L Total Bilirubin 7.2 MG/DL (0.2-1.0) H Direct Bilirubin 6.2 MG/DL (0.0-0.3) H Aspartate Amino Transf (AST/SGOT) 320 U/L (15-37) H Alanine Aminotransferase (ALT/SGPT) 181 U/L (12-78) H Alkaline Phosphatase 231 U/L (46-116) H Total Protein 7.0 G/DL (6.4-8.2) Albumin 2.6 G/DL (3.4-5.0) L Globulin 4.4 g/dL Albumin/Globulin Ratio 0.6 (1.0-2.7) L Height (Feet): 6 Height (Inches): 1.00 Weight (Pounds): 220 General Appearance: no apparent distress Cardiovascular: normal rate Respiratory/Chest: normal breath sounds, no respiratory distress Abdominal Exam: normal bowel sounds, non tender, soft Extremities: normal range of motion, non-tender Shanta Chen N.P. Jun 16, 2017 14:25
[2017-06-16 16:00] VITALS: BP 114/75
--- NOTE | 2017-06-16 16:28 | General Progress Note ---
Assessment/Plan Status: stable, progressing Subjective Date patient seen: Jun 16, 2017 Neurologic/Psychiatric: Reports: anxiety, depressed, emotional problems Allergies: Coded Allergies: No Known Allergies (Unverified , 01/21/17) Objective Last 24 Hour Vital Signs Date Time Temp Pulse Resp B/P (MAP) Pulse Ox O2 Delivery O2 Flow Rate FiO2 06/16/17 16:00 97.0 65 18 114/75 97 06/16/17 12:00 97.0 58 18 102/62 97 06/16/17 09:14 63 121/76 06/16/17 09:14 63 121/76 06/16/17 08:00 96.6 63 18 121/76 96 06/16/17 04:00 98.0 63 18 115/75 96 06/16/17 04:00 96 Room Air 06/16/17 00:01 97.2 60 20 123/79 97 06/16/17 00:01 97 Room Air 06/15/17 22:39 98.0 06/15/17 20:58 64 131/73 Intake and Output 06/15/17 06/16/17 19:00 07:00 Intake Total 106 ml 840 ml Balance 106 ml 840 ml Intake Oral 240 ml IV Total 106 ml 600 ml # Voids 2 # Bowel Movements 1 Laboratory Tests 06/16/17 06:15: White Blood Count 8.2, Red Blood Count 3.05L, Hemoglobin 9.8L, Hematocrit 31.6L , Mean Corpuscular Volume 104H, Mean Corpuscular Hemoglobin 32.1H, Mean Corpuscular Hemoglobin Concent 31.1L, Red Cell Distribution Width 20.6H, Platelet Count 228, Mean Platelet Volume 10.7H, Neutrophils (%) (Auto) 48.4, Lymphocytes (%) (Auto) 36.9, Monocytes (%) (Auto) 9.7, Eosinophils (%) (Auto) 4.0H, Basophils (%) (Auto) 1.0, Prothrombin Time 12.4H, Prothromb Time International Ratio 1.2H, Activated Partial Thromboplast Time 33, Sodium Level 132L, Potassium Level 3.4L, Chloride Level 100, Carbon Dioxide Level 20L, Anion Gap 12, Blood Urea Nitrogen 35H, Creatinine 1.4H, Estimat Glomerular Filtration Rate > 60, Glucose Level 395#H, Calcium Level 8.2L, Phosphorus Level 3.1, Magnesium Level 1.7L, Total Bilirubin 7.2H, Direct Bilirubin 6.2H, Aspartate Amino Transf (AST/SGOT) 320H, Alanine Aminotransferase (ALT/SGPT) 181H, Alkaline Phosphatase 231H, Total Protein 7.0, Albumin 2.6L, Globulin 4.4, Albumin/Globulin Ratio 0.6L Height (Feet): 6 Height (Inches): 1.00 Weight (Pounds): 220 General Appearance: no apparent distress, alert, confused Neurologic: depressed affect Jocelyn Mcdermott M.D. Jun 16, 2017 16:28
--- NOTE | 2017-06-16 16:54 | Pulmonology Progress Note ---
Assessment/Plan Problems: (1) Intractable abdominal pain (2) Liver mass (3) Coagulopathy (4) ATN (acute tubular necrosis) (5) Abdominal pain Assessment/Plan vitamin K check renal parameters f/u GI recommendations symptomatic treatment. dc with GI, no intervention planned Subjective ROS Limited/Unobtainable: No Constitutional: Reports: no symptoms HEENT: Repors: no symptoms Respiratory: Reports: no symptoms Allergies: Coded Allergies: No Known Allergies (Unverified , 01/21/17) Objective Last 24 Hour Vital Signs Date Time Temp Pulse Resp B/P (MAP) Pulse Ox O2 Delivery O2 Flow Rate FiO2 06/16/17 16:00 97.0 65 18 114/75 97 06/16/17 12:00 97.0 58 18 102/62 97 06/16/17 09:14 63 121/76 06/16/17 09:14 63 121/76 06/16/17 08:00 96.6 63 18 121/76 96 06/16/17 04:00 98.0 63 18 115/75 96 06/16/17 04:00 96 Room Air 06/16/17 00:01 97.2 60 20 123/79 97 06/16/17 00:01 97 Room Air 06/15/17 22:39 98.0 06/15/17 20:58 64 131/73 Intake and Output 06/15/17 06/16/17 19:00 07:00 Intake Total 106 ml 840 ml Balance 106 ml 840 ml Intake Oral 240 ml IV Total 106 ml 600 ml # Voids 2 # Bowel Movements 1 General Appearance: WD/WN HEENT: normocephalic, atraumatic Respiratory/Chest: chest wall non-tender, lungs clear Cardiovascular: normal peripheral pulses, normal rate Abdomen: normal bowel sounds, soft, non tender Skin: no lesions 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 Resulted 06/14/17 17:50 Stool Clostridium difficile Toxin Assay - Final Complete Laboratory Tests 06/16/17 06:15: White Blood Count 8.2, Red Blood Count 3.05L, Hemoglobin 9.8L, Hematocrit 31.6L , Mean Corpuscular Volume 104H, Mean Corpuscular Hemoglobin 32.1H, Mean Corpuscular Hemoglobin Concent 31.1L, Red Cell Distribution Width 20.6H, Platelet Count 228, Mean Platelet Volume 10.7H, Neutrophils (%) (Auto) 48.4, Lymphocytes (%) (Auto) 36.9, Monocytes (%) (Auto) 9.7, Eosinophils (%) (Auto) 4.0H, Basophils (%) (Auto) 1.0, Prothrombin Time 12.4H, Prothromb Time International Ratio 1.2H, Activated Partial Thromboplast Time 33, Sodium Level 132L, Potassium Level 3.4L, Chloride Level 100, Carbon Dioxide Level 20L, Anion Gap 12, Blood Urea Nitrogen 35H, Creatinine 1.4H, Estimat Glomerular Filtration Rate > 60, Glucose Level 395#H, Calcium Level 8.2L, Phosphorus Level 3.1, Magnesium Level 1.7L, Total Bilirubin 7.2H, Direct Bilirubin 6.2H, Aspartate Amino Transf (AST/SGOT) 320H, Alanine Aminotransferase (ALT/SGPT) 181H, Alkaline Phosphatase 231H, Total Protein 7.0, Albumin 2.6L, Globulin 4.4, Albumin/Globulin Ratio 0.6L Current Medications Medications (Trade) Dose Ordered Sig/Angeles Route PRN Reason Start Time Stop Time Status Last Admin Dose Admin Amlodipine Besylate (Norvasc) 10 mg DAILY ORAL 06/15/17 09:00 07/15/17 08:59 06/16/17 09:14 Dextrose (Dextrose 50%) STAT PRN IV Hypoglycemia 06/12/17 18:00 07/12/17 17:59 Dextrose/Sodium Chloride 1,000 ml @ 50 mls/hr Q20H IV 06/12/17 13:32 07/12/17 13:31 06/16/17 09:26 Heparin Sodium (Porcine) (Heparin 5000 units/ml) 5,000 units EVERY 12 HOURS SUBQ 06/12/17 21:00 07/12/17 20:59 06/16/17 09:25 Levetiracetam (Keppra) 500 mg BID GT 06/15/17 18:00 07/15/17 17:59 06/16/17 09:14 Loperamide HCl (Imodium) 2 mg Q4H PRN ORAL Diarrhea 06/14/17 18:45 07/14/17 18:44 06/15/17 17:34 Lorazepam (Ativan 2mg/ml 1ml) 0.5 mg Q4H PRN IV For Anxiety 06/12/17 18:00 06/19/17 17:59 06/12/17 20:20 Metoprolol Tartrate (Lopressor) 50 mg EVERY 12 HOURS ORAL 06/14/17 21:00 07/14/17 20:59 06/16/17 09:14 Morphine Sulfate (MS Contin) 30 mg EVERY 12 HOURS ORAL 06/15/17 21:30 06/22/17 20:59 06/16/17 09:15 Morphine Sulfate (Morphine Sulfate) 1 mg Q4H PRN IVP For Pain 06/12/17 13:45 06/19/17 13:44 06/13/17 18:28 Ondansetron HCl (Zofran) 4 mg Q6H PRN IVP Nausea & Vomiting 06/12/17 18:00 07/12/17 17:59 Quetiapine Fumarate (SEROquel) 400 mg BID ORAL 06/15/17 18:00 07/15/17 17:59 06/16/17 09:14 Sertraline HCl (Zoloft) 100 mg DAILY ORAL 06/16/17 09:00 07/16/17 08:59 06/16/17 09:26 RUDDY BIRMINGHAM Jun 16, 2017 16:53
[2017-06-16] MEDS ORDERED: Tubing IV Secondary IV ONE (17:25)
[2017-06-16 20:00] VITALS: BP 126/80
[2017-06-17] VITALS: BP 119/78
[2017-06-17 04:33] VITALS: BP 120/70
[2017-06-17] MEDS: D5 1/2NS 1,000 ML IV SCH (04:54)
[2017-06-17 07:32] LABS: EOSINOPHILS % (AUTO) 4.5 % (0.0-3.0); HEMATOCRIT 34.6 % (42.0-52.0); HEMOGLOBIN 10.6 G/DL (14.2-18.0); LYMPHOCYTES % (AUTO) 27.5 % (20.0-45.0); MEAN CORPUSCULAR VOLUME 104 FL (80-99); MONOCYTES % (AUTO) 8.2 % (1.0-10.0); NEUTROPHILS % (AUTO) 58.8 % (45.0-75.0); PLATELET COUNT 236 K/UL (150-450); RED BLOOD COUNT 3.32 M/UL (4.70-6.10); RED CELL DISTRIBUTION WIDTH 20.7 % (11.6-14.8); WHITE BLOOD COUNT 8.2 K/UL (4.8-10.8)
[2017-06-17 07:57] LABS: ALANINE AMINOTRANSFERASE 203 U/L (12-78); ALBUMIN 2.8 G/DL (3.4-5.0); ALBUMIN/GLOBULIN RATIO 0.6 (1.0-2.7); ALKALINE PHOSPHATASE 239 U/L (46-116); ANION GAP 12 mmol/L (5-15); ASPARTATE AMINO TRANSFERASE 347 U/L (15-37); BILIRUBIN,TOTAL 8.3 MG/DL (0.2-1.0); BLOOD UREA NITROGEN 39 mg/dL (7-18); CARBON DIOXIDE 22 MMOL/L (21-32); CHLORIDE 100 MMOL/L (98-107); CREATININE 1.6 MG/DL (0.55-1.30); POTASSIUM 4.1 MMOL/L (3.5-5.1); SODIUM 134 MMOL/L (136-145)
[2017-06-17 08:00] VITALS: BP 104/66
[2017-06-17 08:03] LABS: BILIRUBIN,DIRECT 7.1 MG/DL (0.0-0.3)
[2017-06-17] MEDS: levETIRAcetam 500mg/5ml Liquid GT SCH (08:34)
[2017-06-17] MEDS: QUEtiapine 200mg tab ORAL SCH (08:35)
[2017-06-17] MEDS: MS Contin 15mg tab ORAL SCH (08:36)
[2017-06-17] MEDS: Sertraline 100mg tab ORAL SCH (08:36)
[2017-06-17] MEDS: Metoprolol Tartrate 50mg tab ORAL SCH (08:38)
[2017-06-17] MEDS: Heparin 5000 units/ml inj SUBQ SCH (08:42)
--- NOTE | 2017-06-17 09:43 | Consultation ---
DATE OF CONSULTATION: 06/15/2017 HISTORY OF PRESENT ILLNESS: The patient is presenting with confusion, disoriented, and not able to be engaged during the evaluation. Poor insight. Poor cognition. The patient has started having abdominal pain for several days. Therefore, he was admitted for medical stabilization. The patient has a history of stomach cancer. During evaluation, the patient was not able to provide any history. I am familiar with the patient from the [facility] Facility he is residing in. PAST PSYCHIATRY HISTORY: He has a history of depression and anxiety. PAST MEDICAL HISTORY: As above. MEDICATIONS: He is currently on Zoloft and Seroquel. ALLERGIES: No known drug allergies. SUBSTANCE ABUSE HISTORY: No history of illicit drug use or alcohol. MENTAL STATUS EXAMINATION: The patient is alert and oriented times self. Mood is depressed. Affect is constricted. Congruent with mood. Thought process is concrete. Thought content, no suicidal or homicidal ideations. ASSESSMENT: AXIS I Major depressive disorder, schizophrenia by history. AXIS II Deferred. AXIS III As above. AXIS IV Low. AXIS V Global assessment of functioning is 20. PLAN: 1. The patient will be continued on Seroquel 400 mg b.i.d. 2. Zoloft 100 mg in the morning. 3. Provided the patient with supportive therapy and reality orientation. Jocelyn Mcdermott M.D. DR: CAITLYN JOB#: [id number] CC:
[2017-06-17 12:00] VITALS: BP_SYST 105; BP_SYST 164; BP_DIAS 68; BP_DIAS 89
--- NOTE | 2017-06-17 14:12 | GI Progress Note ---
Assessment/Plan Problems: (1) Liver mass ICD Codes: R16.0 - Hepatomegaly, not elsewhere classified SNOMED: 815895478 (2) Abdominal pain ICD Codes: R10.9 - Unspecified abdominal pain SNOMED: [id number] Qualifiers: Qualified Codes: R10.9 - Unspecified abdominal pain (3) Enteritis ICD Codes: K52.9 - Noninfective gastroenteritis and colitis, unspecified SNOMED: 16680323 Status: unchanged Status Narrative Discussed with Dr. Mendez. 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 stool cx >> negative cdiff >> negative symptomatic treatment titrate bowel regime fu tumor markers imaging studies prn fu labs Subjective Subjective limited diarrhea vs constipation Objective Last 24 Hour Vital Signs Date Time Temp Pulse Resp B/P (MAP) Pulse Ox O2 Delivery O2 Flow Rate FiO2 06/17/17 12:00 98.1 78 17 105/68 96 06/17/17 08:39 75 104/66 06/17/17 08:38 75 104/66 06/17/17 08:00 97.9 75 18 104/66 100 06/17/17 04:33 98.2 68 19 120/70 98 06/17/17 04:33 98 Room Air 06/17/17 00:00 98.4 74 18 119/78 98 06/17/17 00:00 98 Room Air 06/16/17 21:32 97.0 06/16/17 20:32 73 126/80 06/16/17 20:00 98.3 73 18 126/80 97 06/16/17 20:00 97 Room Air 06/16/17 16:00 97.0 65 18 114/75 97 Intake and Output 06/16/17 06/17/17 19:00 07:00 Intake Total 1150 ml 840 ml Balance 1150 ml 840 ml Intake Oral 600 ml 240 ml IV Total 550 ml 600 ml # Voids 1 3 Laboratory Tests Test 06/17/17 05:35 White Blood Count 8.2 K/UL (4.8-10.8) Red Blood Count 3.32 M/UL (4.70-6.10) L Hemoglobin 10.6 G/DL (14.2-18.0) L Hematocrit 34.6 % (42.0-52.0) L Mean Corpuscular Volume 104 FL (80-99) H Mean Corpuscular Hemoglobin 31.9 PG (27.0-31.0) H Mean Corpuscular Hemoglobin Concent 30.6 G/DL (32.0-36.0) L Red Cell Distribution Width 20.7 % (11.6-14.8) H Platelet Count 236 K/UL (150-450) Mean Platelet Volume 8.2 FL (6.5-10.1) Neutrophils (%) (Auto) 58.8 % (45.0-75.0) Lymphocytes (%) (Auto) 27.5 % (20.0-45.0) Monocytes (%) (Auto) 8.2 % (1.0-10.0) Eosinophils (%) (Auto) 4.5 % (0.0-3.0) H Basophils (%) (Auto) 1.0 % (0.0-2.0) Sodium Level 134 MMOL/L (136-145) L Potassium Level 4.1 MMOL/L (3.5-5.1) Chloride Level 100 MMOL/L (98-107) Carbon Dioxide Level 22 MMOL/L (21-32) Anion Gap 12 mmol/L (5-15) Blood Urea Nitrogen 39 mg/dL (7-18) H Creatinine 1.6 MG/DL (0.55-1.30) H Estimat Glomerular Filtration Rate 52.8 mL/min (>60) Glucose Level 112 MG/DL (74-106) #H Calcium Level 10.0 MG/DL (8.5-10.1) # Total Bilirubin 8.3 MG/DL (0.2-1.0) H Direct Bilirubin 7.1 MG/DL (0.0-0.3) H Aspartate Amino Transf (AST/SGOT) 347 U/L (15-37) H Alanine Aminotransferase (ALT/SGPT) 203 U/L (12-78) H Alkaline Phosphatase 239 U/L (46-116) H Total Protein 7.8 G/DL (6.4-8.2) Albumin 2.8 G/DL (3.4-5.0) L Globulin 5.0 g/dL Albumin/Globulin Ratio 0.6 (1.0-2.7) L Height (Feet): 6 Height (Inches): 1.00 Weight (Pounds): 220 General Appearance: no apparent distress, alert Cardiovascular: normal rate Respiratory/Chest: normal breath sounds, other - 2LNC Shanta Chen N.P. Jun 17, 2017 14:12
--- NOTE | 2017-06-17 16:07 | Pulmonology Progress Note ---
Assessment/Plan Problems: (1) Intractable abdominal pain (2) Liver mass (3) Coagulopathy (4) ATN (acute tubular necrosis) (5) Abdominal pain Assessment/Plan vitamin K check renal parameters f/u GI recommendations symptomatic treatment. pt discharge was delayed because of clerical error Subjective ROS Limited/Unobtainable: No Constitutional: Reports: no symptoms HEENT: Repors: no symptoms Respiratory: Reports: no symptoms Allergies: Coded Allergies: No Known Allergies (Unverified , 01/21/17) Objective Last 24 Hour Vital Signs Date Time Temp Pulse Resp B/P (MAP) Pulse Ox O2 Delivery O2 Flow Rate FiO2 06/17/17 12:00 98.1 78 17 105/68 96 06/17/17 08:39 75 104/66 06/17/17 08:38 75 104/66 06/17/17 08:00 97.9 75 18 104/66 100 06/17/17 04:33 98.2 68 19 120/70 98 06/17/17 04:33 98 Room Air 06/17/17 00:00 98.4 74 18 119/78 98 06/17/17 00:00 98 Room Air 06/16/17 21:32 97.0 06/16/17 20:32 73 126/80 06/16/17 20:00 98.3 73 18 126/80 97 06/16/17 20:00 97 Room Air Intake and Output 06/16/17 06/17/17 19:00 07:00 Intake Total 1150 ml 840 ml Balance 1150 ml 840 ml Intake Oral 600 ml 240 ml IV Total 550 ml 600 ml # Voids 1 3 General Appearance: WD/WN HEENT: normocephalic, atraumatic Respiratory/Chest: chest wall non-tender, lungs clear Cardiovascular: normal peripheral pulses, normal rate Abdomen: soft, non tender Genitourinary: normal external genitalia Skin: no ulcers Microbiology Date/Time Source Procedure Growth Status 06/14/17 17:50 Stool Stool Culture - Final NO SALMONELLA,SHIGELLA,OR CAMPYLOBACT... Complete 06/14/17 17:50 Stool Clostridium difficile Toxin Assay - Final Complete Laboratory Tests 06/17/17 05:35: White Blood Count 8.2, Red Blood Count 3.32L, Hemoglobin 10.6L, Hematocrit 34.6L , Mean Corpuscular Volume 104H, Mean Corpuscular Hemoglobin 31.9H, Mean Corpuscular Hemoglobin Concent 30.6L, Red Cell Distribution Width 20.7H, Platelet Count 236, Mean Platelet Volume 8.2, Neutrophils (%) (Auto) 58.8, Lymphocytes (%) (Auto) 27.5, Monocytes (%) (Auto) 8.2, Eosinophils (%) (Auto) 4.5H, Basophils (%) (Auto) 1.0, Sodium Level 134L, Potassium Level 4.1, Chloride Level 100, Carbon Dioxide Level 22, Anion Gap 12, Blood Urea Nitrogen 39H, Creatinine 1.6H, Estimat Glomerular Filtration Rate 52.8, Glucose Level 112 #H, Calcium Level 10.0#, Total Bilirubin 8.3H, Direct Bilirubin 7.1H, Aspartate Amino Transf (AST/SGOT) 347H, Alanine Aminotransferase (ALT/SGPT) 203H, Alkaline Phosphatase 239H, Total Protein 7.8, Albumin 2.8L, Globulin 5.0, Albumin/Globulin Ratio 0.6L Current Medications Medications (Trade) Dose Ordered Sig/Angeles Route PRN Reason Start Time Stop Time Status Last Admin Dose Admin Amlodipine Besylate (Norvasc) 10 mg DAILY ORAL 06/15/17 09:00 07/15/17 08:59 06/17/17 08:39 Dextrose (Dextrose 50%) STAT PRN IV Hypoglycemia 06/12/17 18:00 07/12/17 17:59 Dextrose/Sodium Chloride 1,000 ml @ 50 mls/hr Q20H IV 06/12/17 13:32 07/12/17 13:31 06/17/17 04:54 Heparin Sodium (Porcine) (Heparin 5000 units/ml) 5,000 units EVERY 12 HOURS SUBQ 06/12/17 21:00 07/12/17 20:59 06/17/17 08:42 Levetiracetam (Keppra) 500 mg BID GT 06/15/17 18:00 07/15/17 17:59 06/17/17 08:34 Loperamide HCl (Imodium) 2 mg Q4H PRN ORAL Diarrhea 06/14/17 18:45 07/14/17 18:44 06/15/17 17:34 Lorazepam (Ativan 2mg/ml 1ml) 0.5 mg Q4H PRN IV For Anxiety 06/12/17 18:00 06/19/17 17:59 06/12/17 20:20 Metoprolol Tartrate (Lopressor) 50 mg EVERY 12 HOURS ORAL 06/14/17 21:00 07/14/17 20:59 06/17/17 08:38 Morphine Sulfate (MS Contin) 30 mg EVERY 12 HOURS ORAL 06/15/17 21:30 06/22/17 20:59 06/17/17 08:36 Morphine Sulfate (Morphine Sulfate) 1 mg Q4H PRN IVP For Pain 06/12/17 13:45 06/19/17 13:44 06/13/17 18:28 Ondansetron HCl (Zofran) 4 mg Q6H PRN IVP Nausea & Vomiting 06/12/17 18:00 07/12/17 17:59 Quetiapine Fumarate (SEROquel) 400 mg BID ORAL 06/15/17 18:00 07/15/17 17:59 06/17/17 08:35 Sertraline HCl (Zoloft) 100 mg DAILY ORAL 06/16/17 09:00 07/16/17 08:59 06/17/17 08:36 RUDDY BIRMINGH[place] Jun 17, 2017 16:07
[2017-06-17] MEDS ORDERED: D5 1/2NS 1000ml IV ONE (16:14)
--- NOTE | 2017-06-18 08:14 | General Progress Note ---
Assessment/Plan Status: stable, progressing Subjective Date patient seen: Jun 17, 2017 Neurologic/Psychiatric: Reports: anxiety, depressed, emotional problems Allergies: Coded Allergies: No Known Allergies (Unverified , 01/21/17) Objective Last 24 Hour Vital Signs Date Time Temp Pulse Resp B/P (MAP) Pulse Ox O2 Delivery O2 Flow Rate FiO2 06/17/17 12:00 98.1 78 17 105/68 96 06/17/17 08:39 75 104/66 06/17/17 08:38 75 104/66 Height (Feet): 6 Height (Inches): 1.00 Weight (Pounds): 220 General Appearance: no apparent distress, alert, confused, agitated Neurologic: disoriented, depressed affect Jocelyn Mcdermott M.D. Jun 18, 2017 08:14
--- NOTE | 2017-06-18 15:45 | Discharge Summary ---
Discharge Summary Hospital Course Date of Admission Jun 12, 2017 at 11:34 Date of Discharge Jun 17, 2017 at 16:15 Admitting Diagnosis FAILURE TO THRIVE MILTON Villanueva is a 67 year old male who was admitted on Jun 12, 2017 at 11: 34 for Failure To Thrive Hospital Course [id number] Discharge Discharge Disposition Patient was discharged to assisted Living Discharge Diagnoses: Nazanin Choudhary NP Jun 18, 2017 15:45
--- NOTE | 2017-06-18 18:30 | Discharge Summary 2 SIG ---
DATE OF ADMISSION: 06/12/2017 DATE OF DISCHARGE: 06/17/2017 CONSULTANTS: 1. Deo Mendez M.D. 2. Jocelyn Mcdermott M.D. 3. [place] M.D. BRIEF HOSPITAL COURSE: The patient is a 67-year-old male, who came from assisted living, was brought in by EMS for complaints of abdominal pain for two to three days. There was no associated nausea, vomiting, or diarrhea. No fever. No chills. He has history of liver cancer. On evaluation at ED, he was started on IV hydration and was given pain management. CT of the abdomen and pelvis done showed a large right liver mass with involvement of portal vein. He has history of liver malignancy with metastasis. The patient is unresectable. Prognosis poor and guarded. LFTs and bilirubin were elevated. Tumor markers, CA 125, and PSA was within normal limits. AFP was 48. He had one episode of diarrhea. Stool culture and C. diff were negative. The patient was confused and disoriented and has poor insight and cognition. He was diagnosed with major depressive disorder and schizophrenia by history. He was given Seroquel 400 mg b.i.d. and was started on Zoloft 100 mg daily. He was provided a sitter for the patient's safety. INR was 1.7. He was given vitamin K. Repeat INR 1.2. He was given PT and OT and was eventually discharged back to assisted living. FINAL DIAGNOSES: 1. Intractable abdominal pain secondary to unresectable liver mass. 2. Coagulopathy. 3. Acute tubular necrosis. 4. Abdominal pain. 5. Major depressive disorder. 6. Schizophrenia by history. 7. Acute gastroenteritis, resolved. DISPOSITION: The patient was discharged back to assisted living. DISCHARGE MEDICATIONS: Refer to medication list. DISCHARGE INSTRUCTIONS: Follow up with PMD in a week. Wilder Bliss M.D. I have been assigned to dictate discharge summary on this account and I was not involved in the patient's management. Nazanin Choudhary N.P. DR: SPEEDY JOB#: [id number] CC: NICHOL
== END 2017-06-17 16:15 | disposition home or self-care (01) | DRG 254 ==
LOC: EDBD 10:51 → EMR 11:20 → 3E 11:34 → EDBEDREQ 16:45 → 3E 22:03
DX: D49.0 Neoplasm of unspecified behavior of digestive system (principal); N17.0 Acute kidney failure with tubular necrosis; D68.9 Coagulation defect, unspecified; K52.9 Noninfective gastroenteritis and colitis, unspecified; F20.9 Schizophrenia, unspecified; R62.7 Adult failure to thrive; F32.9 Major depressive disorder, single episode, unspecified; Z85.028 Personal history of other malignant neoplasm of stomach; Z85.05 Personal history of malignant neoplasm of liver
CPT/HCPCS: 36415; 74176; 76700; 80053; 82105; 82140; 82248; 82378; 82607; 82728; 82746; 82962; 83540; 83550; 83735; 84100; 84153; 84439; 84443; 85025; 85044; 85610; 85730; 86304; 86705; 86709; 86803; 87045; 87081; 87181; 87324; 87340; 93970; 99285; J2405; J8499